=== PATIENT | male | born 1935 | race Caucasian/White ===

== ENCOUNTER 2018-09-16 12:20 | Emergency (ER) | payer MEDICARE, OTHER ==
[2018-09-16 13:09] VITALS: BP 151/74
== END 2018-09-16 14:45 | disposition left against medical advice (07) ==
LOC: ED 12:20
DX: Z53.21 Procedure and treatment not carried out due to patient leaving prior to being seen by health care provider (principal)
CPT/HCPCS: 99282

== ENCOUNTER 2018-12-21 14:26 | Inpatient (IN) | payer MEDICARE, OTHER ==
--- OUTSIDE RECORDS SUMMARY | 2018-12-21 14:34 | XMS REPORT | Continuity of Care Document ---
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 Onset: 03/29/2013 Hypothyroidism John Brewer M.D.,FACP Onset: 06/20/2013 Acute exacerbation of chronic Aric Murillo M.D. Onset: 08/16/2014 obstructive airways disease Dyssomnia Aric Murillo M.D. 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 Tobacco Use Start: Unknown Former Cigarette Smoker End: Unknown Cigarette Use Quit 30 Years Ago ETOH Use Has consumed alcohol in drank heavily, quit the past 30 yrs ago ETOH Use 07/12/2012 Occasionally consumes alcohol Recreational Drug Use Denies Drug Use Tobacco Use Start: Unknown Patient is a former Smoked for 60 yrs End: Unknown smoker Smoking Status Reviewed: 10/26/18 Patient is a former Smoked for 60 yrs smoker Exercise Type/Frequency Does not exercise Allergies, Adverse Reactions, Alerts Active Allergies Reaction Severity Comments Date Penicillin 07/12/2012 Inactive Allergies NKDA 02/27/2009 Medications Active Medications SIG Qnty Indications Ordering Date Provider Losartan Potassium 1 by mouth once a 30tabs E11.9 Aric 11/26/2017 25mg day Nirmal Murillo Tablets Janumet take 1 tablet 60tabs E11.9 Rama Saini MD 06/27/2015 50-500mg twice daily Tablets Oxygen Wearable, 1units J44.1 John Berry NP 01/17/2015 [facility] portable oxygen unit. 2lnc as need with out door activity Nebulizer use as needed for 1units J44.9 Rama Saini MD 04/11/2014 Compressor/Dualfilter symptoms of sob /7' Tubing/Aerosol Dx-j44.9 T/Mthpiece 10-26-2018 Kit Nebulizer use as needed for 1units J44.9 Rama Saini MD 04/11/2014 Kit/Tubing/Mouthpiece symptoms sob dx-j44.9 Kit 10-26-2018 Albuterol Sulfate use one ampule 270ml Wicho Corbett 04/11/2014 via nebulizer Nirmal Murillo (2.5mg/3ML) 0.083% every 6h as Nebulizer needed Proair HFA inhale 2 puffs by 8.5units Aric 03/27/2014 108(90Base) mouth every four Nirmal Murillo mcg/Act Aerosol hours as needed Needs Appt Simvastatin take 1 tablet by 30tabs Rama Saini MD 02/13/2014 20mg mouth once daily Tablets Levothyroxine Sodium 1 by mouth every 90tabs E03.9 Rama Saini MD 2013 day 50mcg Tablets Sertraline HCL take 1 and 1/2 135tabs Rama Saini MD 07/12/2012 50mg tablet by mouth Tablets once daily Advair Diskus inhale 1 dose by 60unmikayla J44.9 Rama Saini MD 01/02/2011 mouth twice a day 250-50mcg/Dose as directed Aerosol Spiriva Handihaler inhale the 30caps Rama Saini MD 06/28/2009 contents of one 18mcg Capsules capsule in the handihaler once daily Pantoprazole Sodium take 1 tablet by 90tabs Rama Saini MD mouth once daily 40mg Tablets DR Finasteride take 1 tablet by 90tabs Rama Saini MD 5mg Tablets mouth once daily History Medications Azithromycin 2 tab today and 6tabs [place] 02/24/2017 - 250mg then 1tab daily Nirmal Murillo 03/13/2017 Tablets Mucinex 1 tab twice a day 60tabs J44.1 [place] 01/28/2017 - 600mg by mouth as Nirmal Murillo 06/10/2018 Tablets ER 12HR needed Penlac to the toe nails 13.2ml B35.1 [place] 03/12/2016 - 8% Solution daily Nirmal Murillo 06/10/2018 Celecoxib once daily 30caps M79.622 Won Andre NP 03/12/2016 - 0 01/28/2017 Capsules Theophylline ER take 1 tablet by 30tabs [place] 07/11/2015 - mouth daily Nirmal Murillo 06/10/2018 400mg Tablets ER 24HR Onetouch Lancets please check 100units Fermín Madera NP 07/02/2015 - blood sugar 10/26/2018 Misc fasting, before bed, and after meals as needed Onetouch Verio test three times 100units E11.9 Fermín Madera NP 2015 - a day as needed 10/26/2018 Strips dx: E11.9 Onetouch Verio use as directed 1units E11.9 [place] 06/27/2015 - Nirmal Murillo 10/26/2018 w/Device Kit Onetouch Verio use as directed 1units M25.522 Aric 06/27/2015 - Nirmal Murillo 06/27/2015 W/Device Kit Medrol (Joel) as directed 1tabs M25.522 Aric 06/27/2015 - 4mg Nirmal Murillo 07/11/2015 Tablets Azithromycin 2 tabs by mouth 6tabs 465.8 John Berry NP 04/11/2014 - 250mg on day one 08/16/2014 Tablets followed by 1 tab daily for the last 4 days Azithromycin 2 every day for 1 6tabs 491.21 John Pham 01/25/2014 - 250mg day, then 1 every Nirmal Brewer,[facility] 01/30/2014 Tablets day Atorvastatin one tab by mouth 90tabs 250.00 John Pham 06/20/2013 - Calcium every night at Nirmal Brewer,[facility] 09/27/2013 20mg bedtime Tablets Theophylline ER take 2 tablets by 120tabs Aric 10/28/2012 - mouth twice a day Nirmal Murillo 01/30/2016 200mg Tablets ER 12HR Daliresp po qd 30tabs 496 John Pham 07/12/2012 - 500mcg Nirmal Brewer,[facility] 10/28/2012 Tablets Zithromax Z-Joel as per directions Leah Nguyen 01/05/2012 - Nirmal Charles 02/02/2012 250mg Tablets Percocet 1-2 po q4-6h prn 60tabs 12/26/2011 - 5-325mg pain Isaacs[place], 09/27/2013 Tablets Nirmal Proscar 1 po qd 30tabs John Pham 04/25/2010 - 5mg Tablets Nirmal Brewer,FACP 04/25/2010 Advair Diskus 1 puff po bid 1mon 496 John Pham 10/02/2009 - Nirmal Brewer,FACP 01/02/2011 250-50mcg/Dose Aerosol Flomax 1 po at hs 30caps 250.00 John Pham 02/27/2009 - 0.4mg Caps Nirmal Brewer,[facility] 07/12/2012 ER 24HR 600.00 Fexofenadine HCL 1 po qd 30tabs Unknown - 01/02/2011 180mg Tablets Actos 1 po qd 30tabs Israel Nguyen - 15mg Tablets Nirmal Charles 10/23/2010 Symbicort 2 puffs bid Danyel, - Nirmal Zuluaga 06/28/2009 160-4.5mcg/Act Aerosol Spiriva Handihaler 1 inhalation qam 30caps Unknown - 05/28/2009 18mcg Capsules Proair HFA Inhale 2 Puffs By 8.5units John Pham - Mouth Every Four [place], 03/27/2014 108(90Base) mcg/ac Hours as Needed Nirmal,EV Aerosol Sertraline HCL take 1 tablet by 30tabs John Pham - 50mg mouth once daily [place], 07/12/2012 Tablets Nirmal,KADIP Theophylline CR take 2 tablets by 120tabs 496 John Pham - 200mg mouth twice a day [place], 07/12/2012 Tablets ER 12HR Nirmal,FACP Simvastatin Take 1 Tablet By 30tabs 250.00 John Pham - 20mg Mouth Once Daily [place], 06/20/2013 Tablets Nirmal,FACP Ibuprofen as needed Unknown - 200mg 01/28/2017 Capsules Nabumetone take 1 tablet by 60tabs [place] - 500mg mouth twice a day [place], 01/28/2017 Funmi Kinney Immunizations CPT Code Status Date Vaccine Reaction Lot # [id number] Given 03/04/2018 Fluzone High Dose No immediate [id number] reaction..jh [id number] Given 03/12/2016 Influ Virus Vaccine, no immediate rection [id number] Quadrivalent, Split Virus, noted ... [place] [address] Given 01/17/2015 Influenza Virus Vaccine, [id number] Quadrivalent, Split, Preservative Free 69854 Given 01/17/2015 Pneumococcal Conjugate [id number] Vaccine 13 Valent For Intramuscular Use [id number] Given 2014 Fluvirin Im 3Yrs And Older 63485 Given 01/25/2014 Zoster (Zostavax) [id number] 70871 Given 01/25/2014 Flu Vaccine Split Virus [id number] Preservative Free For Indiv 3Yr Older 70122 Given 01/21/2013 Flu Vaccine Split Virus [id number] Preservative Free For Indiv 3Yr Older Q2038 Given 12/10/2011 Fluzone Vaccine [id number] Q2038 Given 01/02/2011 Fluzone Vaccine [id number] 92809 Given 10/23/2010 Tdap - [id number] Tetanus/Diptheria/Acellular Pertussis 49597 Given 04/25/2010 Pneumonia Vaccine [id number] 73228 Given 01/12/2010 Influenza Virus 3Yrs & Over Vital Signs Date Vital Result Comment 10/26/2018 10:25am Height 68 inches 5'8" Weight 219.00 lb Heart Rate 84 /min BP Systolic Sitting 153 mmHg BP Diastolic Sitting 70 mmHg Body Temperature 97.7 F O2 % BldC Oximetry 96 % BMI (Body Mass Index) 33.3 kg/m2 06/10/2018 10:01am Height 68 inches 5'8" Weight 213.00 lb Heart Rate 98 /min BP Systolic Sitting 105 mmHg BP Diastolic Sitting 59 mmHg O2 % BldC Oximetry 91 % BMI (Body Mass Index) 32.4 kg/m2 11/26/2017 1:50pm Height 68 inches 5'8" Weight 220.25 lb Heart Rate 83 /min BP Systolic 130 mmHg BP Diastolic 62 mmHg O2 % BldC Oximetry 93 % BMI (Body Mass Index) 33.5 kg/m2 03/13/2017 11:54am Weight 237.00 lb Heart Rate 72 /min BP Systolic Sitting 120 mmHg BP Diastolic Sitting 68 mmHg Body Temperature 97.9 F O2 % BldC Oximetry 93 % 01/28/2017 1:08pm Weight 237.00 lb Heart Rate 98 /min BP Systolic 140 mmHg BP Diastolic 80 mmHg O2 % BldC Oximetry 94 % 03/12/2016 9:23am Weight 236.00 lb with shoes Heart Rate 115 /min BP Systolic Sitting 132 mmHg BP Diastolic Sitting 40 mmHg Body Temperature 97.5 F O2 % BldC Oximetry 94 % 94 resting on Ra walked 146 ft - 91 on Ra 01/30/2016 12:49pm Height 68 inches 5'8" Weight 242.00 lb Heart Rate 89 /min BP Systolic 144 mmHg BP Diastolic 67 mmHg BMI (Body Mass Index) 36.8 kg/m2 08/31/2015 1:37pm Weight 235.00 lb Heart Rate 113 /min BP Systolic Sitting 124 mmHg BP Diastolic Sitting 62 mmHg Body Temperature 99.2 F O2 % BldC Oximetry 97 % 06/27/2015 10:53am Weight 235.00 lb Heart Rate 104 /min BP Systolic Sitting 118 mmHg BP Diastolic Sitting 68 mmHg Body Temperature 97.7 F Pain Level 7 R forearm O2 % BldC Oximetry 96 % 03/09/2015 11:01am Height 68 inches 5'8" Weight 250.00 lb Heart Rate 83 /min BP Systolic Sitting 134 mmHg BP Diastolic Sitting 76 mmHg Respiratory Rate 20 /min O2 % BldC Oximetry 93 % on Ra BMI (Body Mass Index) 38.0 kg/m2 Neck Circumference in inches 16.5 01/17/2015 2:07pm Height 68.5 inches 5'8.50" Weight 252.00 lb Heart Rate 96 /min BP Systolic Sitting 142 mmHg BP Diastolic Sitting 78 mmHg Body Temperature 97.8 F O2 % BldC Oximetry 97 % BMI (Body Mass Index) 37.8 kg/m2 08/16/2014 12:57pm Weight 250.00 lb Heart Rate 88 /min BP Systolic Sitting 142 mmHg BP Diastolic Sitting 90 mmHg O2 % BldC Oximetry 94 % 04/11/2014 11:26am Weight 252.50 lb Heart Rate 104 /min BP Systolic Sitting 146 mmHg BP Diastolic Sitting 63 mmHg Body Temperature 98.5 F O2 % BldC Oximetry 93 % 01/25/2014 11:39am Height 68.5 inches 5'8.50" Weight 250.00 lb Heart Rate 105 /min BP Systolic Sitting 124 mmHg BP Diastolic Sitting 60 mmHg Body Temperature 98.3 F O2 % BldC Oximetry 94 % BMI (Body Mass Index) 37.5 kg/m2 09/27/2013 11:47am Height 68.5 inches 5'8.50" Weight 249.50 lb Heart Rate 80 /min BP Systolic Sitting 142 mmHg BP Diastolic Sitting 66 mmHg BMI (Body Mass Index) 37.4 kg/m2 06/20/2013 1:36pm Height 68 inches 5'8" Weight 243.00 lb Heart Rate 104 /min BP Systolic Sitting 144 mmHg BP Diastolic Sitting 68 mmHg BMI (Body Mass Index) 36.9 kg/m2 11/16/2012 1:39pm Weight 237.50 lb Heart Rate 88 /min BP Systolic Sitting 144 mmHg BP Diastolic Sitting 86 mmHg 07/12/2012 2:34pm Height 68.25 inches 5'8.25" Weight 249.00 lb Heart Rate 110 /min BP Systolic Sitting 144 mmHg BP Diastolic Sitting 80 mmHg O2 % BldC Oximetry 92 % BMI (Body Mass Index) 37.6 kg/m2 01/05/2012 1:00pm Height 69 inches 5'9" Weight 239.00 lb Heart Rate 101 /min BP Systolic Sitting 140 mmHg BP Diastolic Sitting 72 mmHg Body Temperature 99.3 F O2 % BldC Oximetry 93 % BMI (Body Mass Index) 35.3 kg/m2 12/10/2011 3:20pm Height 69 inches 5'9" Weight 241.00 lb Heart Rate 70 /min BP Systolic Sitting 120 mmHg BP Diastolic Sitting 80 mmHg Respiratory Rate 18 /min Body Temperature 98.8 F lt ear BMI (Body Mass Index) 35.6 kg/m2 07/17/2011 3:14pm Height 70 inches 5'10" Weight 249.00 lb Heart Rate 101 /min BP Systolic 159 mmHg BP Diastolic 83 mmHg BMI (Body Mass Index) 35.7 kg/m2 04/25/2011 1:54pm Height 69 inches 5'9" Weight 244.00 lb Heart Rate 100 /min BP Systolic Sitting 148 mmHg BP Diastolic Sitting 82 mmHg BMI (Body Mass Index) 36.0 kg/m2 01/02/2011 1:48pm Height 69 inches 5'9" Weight 241.00 lb Heart Rate 76 /min BP Systolic Sitting 150 mmHg BP Diastolic Sitting 70 mmHg BMI (Body Mass Index) 35.6 kg/m2 10/23/2010 3:32pm Height 69 inches 5'9" Weight 240.00 lb Heart Rate 98 /min BP Systolic Sitting 128 mmHg BP Diastolic Sitting 70 mmHg BMI (Body Mass Index) 35.4 kg/m2 04/25/2010 1:01pm Weight 254.00 lb Heart Rate 83 /min BP Systolic Sitting 150 mmHg BP Diastolic Sitting 70 mmHg 10/23/2009 11:05am Weight 252.00 lb Heart Rate 88 /min BP Systolic Sitting 150 mmHg BP Diastolic Sitting 74 mmHg 10/02/2009 11:05am Weight 252.00 lb Heart Rate 84 /min BP Systolic Sitting 130 mmHg BP Diastolic Sitting 64 mmHg O2 % BldC Oximetry 94 % 06/28/2009 1:56pm Weight 258.50 lb Heart Rate 100 /min BP Systolic Sitting 159 mmHg BP Diastolic Sitting 90 mmHg Body Temperature 98.1 F O2 % BldC Oximetry 93 % 05/28/2009 3:44pm Weight 251.00 lb Heart Rate 84 /min BP Systolic Sitting 138 mmHg BP Diastolic Sitting 70 mmHg 04/13/2009 2:42pm Weight 251.00 lb Heart Rate 85 /min BP Systolic Sitting 113 mmHg BP Diastolic Sitting 65 mmHg Body Temperature 97.6 F 02/27/2009 1:48pm Weight 247.00 lb Heart Rate 84 /min BP Systolic Sitting 154 mmHg BP Diastolic Sitting 80 mmHg Results Test Date Facility Test Result H/L Range Note Laboratory test 10/26/2018 [facility] In House Hemoglobin A1c 5.8 5-7 finding Laboratory test 06/10/2018 [facility] House Hemoglobin A1c 5.8 5-7 finding Comp Metabolic 06/10/2018 [facility] Sodium 144 mmol/L Normal 135-[address] [place] [address] [phone] Potassium 4.2 mmol/L Normal 3.5-5.0 Chloride 106 mmol/L Normal 101-111 Co2 Carbon Dioxide 31 mmol/L Normal 22-32 Anion Gap 7 mmol/L Normal 2-11 Glucose 113 mg/dL High 70-100 Blood Urea Nitrogen 16 mg/dL Normal 6-24 Creatinine 0.92 mg/dL Normal 0.67-1.17 BUN/Creatinine Ratio 17.4 Normal 8-20 Calcium 9.2 mg/dL Normal 8.6-10.3 Total Protein 6.3 g/dL Low 6.4-8.9 Albumin 3.8 g/dL Normal 3.2-5.2 Globulin 2.5 g/dL Normal 2-4 Albumin/Globulin Ratio 1.5 Normal 1-3 Total Bilirubin 0.60 mg/dL Normal 0.2-1.0 Alkaline Phosphatase 67 U/L Normal 34-104 Alt 13 U/L Normal 7-52 Ast 12 U/L Low 13-39 Egfr Non- 79.2 >60 Egfr 95.8 >60 1 Lipid Profile 06/10/2018 [facility] Triglycerides 135 mg/dL 2 (Trig/Chol/HDL) [place], [place] [id number] [phone] Cholesterol 185 mg/dL 3 HDL Cholesterol 47.2 mg/dL 4 LDL Cholesterol 111 mg/dL 5 Laboratory test 06/10/2018 [facility] TSH (Thyroid 3.87 Normal 0.34-5.60 finding Stim Horm) mcIU/[place] [address] [phone] Laboratory test 11/26/2017 [facility] House Hemoglobin A1c 6.0 5-7 finding Urine 11/26/2017 [facility] Ur 30.5 Microalbumin [facility] [place] [place] [address] (mg/L) [phone] Urine Creatinine 138.70 mg/dL Urine Microalbumin/Creatinine 21.9 Normal <31 Laboratory 03/13/2017 [facility] TSH (Thyroid 4.87 Normal 0.34 -5.60 test finding [facility] Stim Horm) mcIU/[place] [address] [phone] Comp Metabolic 03/13/2017 [facility] Sodium 141 mmol/L Normal 133-145 Panel [place], [place] [id number] [phone] Potassium 3.9 mmol/L Normal 3.5-5.0 Chloride 106 mmol/L Normal 101-111 Co2 Carbon Dioxide 28 mmol/L Normal 22-32 Anion Gap 7 mmol/L Normal 2-11 Glucose 190 mg/dL High 70-100 Blood Urea Nitrogen 15 mg/dL Normal 6-24 Creatinine 0.99 mg/dL Normal 0.67-1.17 BUN/Creatinine Ratio 15.2 Normal 8-20 Calcium 9.2 mg/dL Normal 8.6-10.3 Total Protein 6.5 g/dL Normal 6.4-8.9 Albumin 3.9 g/dL Normal 3.2-5.2 Globulin 2.6 g/dL Normal 2-4 Albumin/Globulin Ratio 1.5 Normal 1-3 Total Bilirubin 0.50 mg/dL Normal 0.2-1.0 Alkaline Phosphatase 63 U/L Normal 34-104 Alt 19 U/L Normal 7-52 Ast 13 U/L Normal 13-39 Egfr Non- 72.9 >60 Egfr 93.8 >60 6 CBC Auto 03/13/2017 [facility] White Blood 11.9 10^3/uL High 3.5-10.[address] [place] [address] [phone] Red Blood Count 4.41 10^6/uL Normal 4.0-5.4 Hemoglobin 14.0 g/dL Normal 14.0-18.0 Hematocrit 42 % Normal 42-52 Mean Corpuscular Volume 96 fL High 80-94 Mean Corpuscular Hemoglobin 32 pg High 27-31 Mean Corpuscular HGB Conc 33 g/dL Normal 31-36 Red Cell Distribution Width 14 % Normal 10.5-15 Platelet Count 262 10^3/uL Normal 150-450 Mean Platelet Volume 9 um3 Normal 7.4-10.4 Abs Neutrophils 8.3 10^3/uL High 1.5-7.7 Abs Lymphocytes 2.6 10^3/uL Normal 1.0-4.8 Abs Monocytes 0.8 10^3/uL Normal 0-0.8 Abs Eosinophils 0.2 10^3/uL Normal 0-0.6 Abs Basophils 0.1 10^3/uL Normal 0-0.2 Abs Nucleated RBC 0.01 10^3/uL Granulocyte % 69.2 % Normal 38-83 Lymphocyte % 21.8 % Low 25-47 Monocyte % 6.8 % Normal 1-9 Eosinophil % 1.8 % Normal 0-6 Basophil % 0.4 % Normal 0-2 Nucleated Red Blood Cells % 0.1 Laboratory test 01/28/2017 [facility] House Hemoglobin A1c 5.9 5-7 finding Laboratory test 03/12/2016 [facility] In House Hemoglobin A1c 5.5 5-7 finding Laboratory test 08/31/2015 [facility] In House Hemoglobin A1c 6.8 5-7 finding Lipid Profile 08/17/2015 [facility] Triglycerides 218 mg/dL Normal 7 (Trig/Chol/HDL) [address] [place], [place] [id number] [phone] Cholesterol 173 mg/dL Normal 8 HDL Cholesterol 40.3 mg/dL Normal 9 LDL Cholesterol 89 mg/dL Normal 10 Laboratory 06/27/2015 [facility] TSH (Thyroid 3.56 Normal 0.34 -5.60 11 test finding [address] Stim Horm) ?IU/[place] [address] [phone] Hemoglobin A1c (Glyco HGB) 8.8 % High Less than 6.0 12 Laboratory test 06/27/2015 [facility] Glucose 209 mg/dL High 70-100 13 finding [place], [place] [id number] [phone] Lipid Profile 06/27/2015 [facility] Triglycerides 179 mg/dL Normal 14 (Trig/Chol/HDL) [address] [place], [place] [address] [phone] Cholesterol 167 mg/dL Normal 15 HDL Cholesterol 43.4 mg/dL Normal 16 LDL Cholesterol 88 mg/dL Normal 17 CBC Auto 05/12/2015 [facility] White Blood 9.0 10^3/uL Normal 3.5-10.[address] [place] [address] [phone] Red Blood Count 4.96 10^6/uL Normal 4.0-5.4 Hemoglobin 15.3 g/dL Normal 14.0-18.0 Hematocrit 47 % Normal 42-52 Mean Corpuscular Volume 94 fL Normal 80-94 Mean Corpuscular Hemoglobin 31 pg Normal 27-31 Mean Corpuscular HGB Conc 33 g/dL Normal 31-36 Red Cell Distribution Width 14 % Normal 10.5-15 Platelet Count 261 10^3/uL Normal 150-450 Mean Platelet Volume 8 um3 Normal 7.4-10.4 Abs Neutrophils 5.2 10^3/uL Normal 1.5-7.7 Abs Lymphocytes 2.8 10^3/uL Normal 1.0-4.8 Abs Monocytes 0.7 10^3/uL Normal 0-0.8 Abs Eosinophils 0.2 10^3/uL Normal 0-0.6 Abs Basophils 0.1 10^3/uL Normal 0-0.2 Abs Nucleated RBC 0 10^3/uL Normal Granulocyte % 58.1 % Normal 38-83 Lymphocyte % 31.1 % Normal 25-47 Monocyte % 7.6 % Normal 1-9 Eosinophil % 2.2 % Normal 0-6 Basophil % 1.0 % Normal 0-2 Nucleated Red Blood Cells % 0 Normal Comp Metabolic 05/12/2015 [facility] Sodium 140 mmol/L Normal 133-[address] [place] [address] [phone] Potassium 4.4 mmol/L Normal 3.5-5.0 Chloride 101 mmol/L Normal 101-111 Co2 Carbon Dioxide 34 mmol/L High 22-32 Anion Gap 5 mmol/L Normal 2-11 Glucose 214 mg/dL High 70-100 Blood Urea Nitrogen 16 mg/dL Normal 6-24 Creatinine 1.11 mg/dL Normal 0.67-1.17 BUN/Creatinine Ratio 14.4 Normal 8-20 Calcium 8.9 mg/dL Normal 8.6-10.3 Total Protein 7.0 g/dL Normal 6.4-8.9 Albumin 3.8 g/dL Normal 3.2-5.2 Globulin 3.2 g/dL Normal 2-4 Albumin/Globulin Ratio 1.2 Normal 1-3 Total Bilirubin 0.40 mg/dL Normal 0.2-1.0 Alkaline Phosphatase 61 U/L Normal 34-104 Alt 37 U/L Normal 7-52 Ast 28 U/L Normal 13-39 Egfr Non- 64.2 Normal >60 Egfr 82.6 Normal >60 18 Laboratory 05/12/2015 [facility] Troponin-I (TnI) 0.00 Normal <0.03 19 test finding [address] ng/[place] [address] [phone] Laboratory 03/08/2015 [facility] Theophylline 11.4 Normal 10- 20.0 test finding [address] g/[place] [address] [phone] Laboratory 01/17/2015 [facility] House Hemoglobin A1c 7.5 High 5-7 test finding Laboratory 10/19/2013 [facility] TSH (Thyroid 2.67 Normal 0.34 -5.6 test finding [address] Stimulating IU/mL 0 [place] [address] Horm) [phone] Free T4 1.24 ng/mL High 0.61-1.12 Theophylline 6.3 g/mL Low 10-20.0 Urine 06/21/2013 [facility] Ur Microalbumin 5.0 mg/dL Normal < 30 [address] (mg/L) [place] [address] [phone] Urine Creatinine 91.46 mg/dL Normal Urine Microalbumin/Creatinine 5.4 Normal Less Than 31 Laboratory test 06/13/2013 [facility] PSA Screening 2.578 0- 4.0 [address] ng/[place] [address] [phone] Laboratory test 06/13/2013 [facility] TSH (Thyroid 8.59 High 0.34-5.60 [address] Stimulating IU/[place] [address] Horm) [phone] Hemoglobin A1c 5.9 % Less than 6.0 23 Comp Metabolic Panel 06/13/2013 [facility] Sodium 142 mmol/L 133-[address] [place] [address] [phone] Potassium 4.4 mmol/L 3.7-5.6 Chloride 105 mmol/L 101-111 Co2 Carbon Dioxide 30 mmol/L 22-32 Anion Gap 7 mmol/L 2-11 Glucose 114 mg/dL High 70-100 Blood Urea Nitrogen 19 mg/dL 6-24 Creatinine 1.10 mg/dL 0.67-1.17 BUN/Creatinine Ratio 17.3 8-20 Calcium 9.0 mg/dL 8.6-10.3 Total Protein 6.5 g/dL 6.4-8.9 Albumin 4.1 g/dL 3.2-5.2 Globulin 2.4 g/dL 2-4 Albumin/Globulin Ratio 1.7 1-3 Total Bilirubin 0.40 mg/dL 0.2-1.0 Alkaline Phosphatase 66 U/L 34-104 Alt 17 U/L 7-52 Ast 13 U/L 13-39 Egfr Non- 65.3 >60 Egfr 83.9 >60 24 Lipid Profile 06/13/2013 [facility] Triglycerides 93 mg/dL 25 (Trig/Chol/HDL) [address] [place] [address] [phone] Cholesterol 194 mg/dL 26 HDL Cholesterol 50.2 mg/dL 27 LDL Cholesterol 125 mg/dL 28 Laboratory test 02/10/2012 [facility] PSA Diagnostic 2.87 NG/ML 0-4.0 [address] [place] [address] [phone] Lipid Profile 12/10/2011 [facility] Triglyceride 137 mg/dL 40 -200 (Trig/Chol/HDL) [address] [place] [address] [phone] Cholesterol 179 mg/dL Less Than 200 30 High Density Lipoprotein 55 mg/dL 40-60 31 Cholesterol/HDL Ratio 3.25 AVERAGE 1-4.97 Low Density Lipoprotein 97 mg/dL Less Than 100 32 Comp Metabolic Panel 12/10/2011 [facility] Sodium 143 mmol/L 135-[address] [place] [address] [phone] Potassium 4.5 mmol/L 3.5-5.0 Chloride 108 mmol/L 101-111 Co2 (Carbon Dioxide) 26.0 mmol/L 22-32 Anion Gap 9.0 mmol/L 2-11 33 Glucose 102 mg/dL High 70-100 BUN 17 mg/dL 6-24 Creatinine 1.0 mg/dL 0.50-1.40 One Over Creatinine 1.00 BUN/Creatinine Ratio 17.0 8-20 Calcium 8.9 mg/dL 8.1-9.9 Total Protein 6.3 GM/DL 6.2-8.1 Albumin 3.8 GM/DL 3.2-5.2 Globulin 2.5 GM/DL 2-4 Albumin/Globulin Ratio 1.5 1-3 Bilirubin Total 0.9 mg/dL 0.4-1.5 34 Alkaline Phosphatase 77 U/L 39-117 Alt (SGPT) 21 U/L 17-63 Ast (Sgot) 17 U/L 12-42 eGFR Non- 73.2 > 60 eGFR 94.2 > 60 35 Laboratory test 12/10/2011 [facility] Hemoglobin A1c 5.9 % Less [address] Than 6.0 [place] [address] [phone] Urine 12/10/2011 [facility] Microalbumin 5.0 mg/L Microalbumin [address] (MG/L) Random [place] [address] [phone] Urine Creatinine 174.9 mg/dL Mohan Alb/Creatinine Ratio 2.9 UG/MG Less Than 30 37 Laboratory test 12/10/2011 [facility] Vitamin B12 263 pg/mL 180-914 [place] [address] [phone] TSH 3.36 MIU/ML 0.34-5.60 Theophylline 0.2 g/mL Low 8-20 38 Laboratory test 04/25/2011 [facility] In House Hemoglobin A1c 5.8 5-7 finding Laboratory test 01/02/2011 [facility] In House Hemoglobin A1c 5.6 5-7 finding Laboratory test 10/23/2010 [facility] Theophylline 14.2 g/mL 8-20 39 [place] [address] [phone] Liver Function 10/23/2010 [facility] Total Protein 6.9 GM/DL 6.2-8.1 [place] [address] [phone] Albumin 3.9 GM/DL 3.2-5.2 Globulin 3.0 GM/DL 2-4 Albumin/Globulin Ratio 1.3 1-3 Bilirubin Total 0.9 mg/dL 0.4-1.5 40 Bilirubin Direct 0.1 mg/dL 0.1-0.5 Indirect Bilirubin 0.8 mg/dL 0.3-1.0 41 Alkaline Phosphatase 81 U/L 39-117 Alt (SGPT) 15 U/L Low 17-63 Ast (Sgot) 19 U/L 12-42 Laboratory test 10/23/2010 [facility] In House Hemoglobin A1c 5.4 5-7 finding Laboratory test 08/20/2010 [facility] PSA,Diagnostic 3.55 NG/ML 0-4 42 [place] [address] [phone] Urine Microalbumin 04/25/2010 [facility] Microalbumin (MG/L) 2.0 mg/[place] [address] [phone] Urine Creatinine 195.46 mg/dL Mohan Alb/Creatinine Ratio 1.0 UG/MG Less Than 30 43 Lipid Panel - 04/25/2010 [facility] CPK (Creatine 56 U/L 0- [address] Kinase) [place] [address] [phone] Comp Metabolic 04/25/2010 [facility] Sodium 143 135-[address] mmol/[place] [address] [phone] Potassium 4.4 mmol/L 3.5-5.0 Chloride 106 mmol/L 101-111 Co2 (Carbon Dioxide) 30.0 mmol/L 22-32 Anion Gap 7.0 mmol/L 2-11 44 Glucose 99 mg/dL 70-100 BUN 23 mg/dL 6-24 Creatinine 1.10 mg/dL 0.50-1.40 One Over Creatinine 0.90 BUN/Creatinine Ratio 20.9 High 8-20 Calcium 8.8 mg/dL 8.1-9.9 Total Protein 5.9 GM/DL Low 6.2-8.1 Albumin 3.7 GM/DL 3.2-5.2 Globulin 2.2 GM/DL 2-4 Albumin/Globulin Ratio 1.7 1-3 Bilirubin Total 1.3 mg/dL 0.4-1.5 45 Alkaline Phosphatase 59 U/L 39-117 Alt (SGPT) 14 U/L Low 17-63 Ast (Sgot) 14 U/L 12-42 eGFR Non- 69.9 > 60 eGFR 84.6 > 60 46 Lipid Profile 04/25/2010 [facility] Triglyceride 118 mg/dL 40 -200 (Trig/Chol/HDL) [address] [place] [address] [phone] Cholesterol 156 mg/dL Less Than 200 47 High Density Lipoprotein 48 mg/dL 40-60 48 Cholesterol/HDL Ratio 3.25 AVERAGE 1-4.97 Low Density Lipoprotein 84 mg/dL Less Than 100 49 CBC With 04/25/2010 [facility] White Blood 7.6 CUMM 4.8-10.8 Electronic Diff [address] [place] [address] [phone] Red Cell Count 4.46 CUMM Low 4.6-6.2 Hemoglobin 14.2 g/dL 14.0-18.0 Hematocrit 42 % 42-52 Mean Corpuscular Volume 94 um3 80-94 Mean Corpuscular Hemoglob 32 pg High 27-31 Mean Corpuscular HGB Cone 34 g/dL 32-36 Redcell Distribution WDTH 15 % 10.5-15 Platelet Count 234 CUMM 150-450 Mean Platelet Volume 8.7 um3 7.4-10.4 Gran % 68.8 % 38-83 Lymph % 20.9 % Low 25-47 Mononuclear % 7.9 % 1-9 Eosinophil % 1.9 % 0-6 Basophil % 0.5 % 0-2 Abs Lymphs 1.6 1.0-4.8 Abs Mononuclear 0.6 0-0.8 Absolute Neutrophil Count 5.2 1.5-7.7 Abs Eosinophils 0.1 0-0.6 Abs Basophils 0 0-0.2 Laboratory test 04/25/2010 [facility] House Hemoglobin A1c 5.5 5-7 finding Laboratory test 10/02/2009 [facility] In House Hemoglobin A1c 5.7 5-7 finding Laboratory test 08/06/2009 [facility] PSA,Diagnostic 3.09 NG/ML 0-4 50 finding [address] [place] [address] [phone] Surgical Pathology 05/03/2009 [facility] Surgical 51 [email or web address] [facility] Pathology ----- <[place] [address] NOTE> [phone] CBC With 04/10/2009 [facility] White Blood Count 7.2 CUMM 4.8 -10.8 Electronic Diff [address] [place] [address] [phone] Red Cell Count 4.70 CUMM 4.6-6.2 Hemoglobin 14.9 g/dL 14.0-18.0 Hematocrit 44 % 42-52 Mean Corpuscular Volume 94 um3 80-94 Mean Corpuscular Hemoglob 32 pg High 27-31 Mean Corpuscular HGB Cone 34 g/dL 32-36 Redcell Distribution WDTH 14 % 10.5-15 Platelet Count 231 CUMM 150-450 Mean Platelet Volume 7.9 um3 7.4-10.4 Gran % 64.4 % 38-83 Lymph % 24.5 % Low 25-47 Mononuclear % 7.4 % 1-9 Eosinophil % 3.1 % 0-6 Basophil % 0.6 % 0-2 Abs Lymphs 1.8 1.0-4.8 Abs Mononuclear 0.5 0-0.8 Absolute Neutrophil Count 4.7 1.5-7.7 Abs Eosinophils 0.2 0-0.6 Abs Basophils 0 0-0.2 Comp Metabolic Panel 04/10/2009 [facility] Sodium 141 mmol/L 135-145 [address] [place] [address] [phone] Potassium 4.0 mmol/L 3.5-5.0 Chloride 104 mmol/L 101-111 Co2 (Carbon Dioxide) 28.0 mmol/L 22-32 Anion Gap 9.0 mmol/L 2-11 52 Glucose 122 mg/dL High 70-100 53 BUN 16 mg/dL 6-24 Creatinine 1.10 mg/dL 0.50-1.40 One Over Creatinine 0.90 BUN/Creatinine Ratio 14.5 8-20 Calcium 8.9 mg/dL 8.1-9.9 54 Total Protein 5.9 GM/DL Low 6.2-8.1 Albumin 3.8 GM/DL 3.2-5.2 Globulin 2.1 GM/DL 2-4 Albumin/Globulin Ratio 1.8 1-3 Bilirubin Total 0.8 mg/dL 0.4-1.5 55 Alkaline Phosphatase 64 U/L 39-117 Alt (SGPT) 18 U/L 17-63 Ast (Sgot) 17 U/L 12-42 eGFR Non- 70.1 > 60 eGFR 84.9 > 60 56 Lipid Profile 04/10/2009 [facility] Triglyceride 104 mg/dL 40 -200 (Trig/Chol/HDL) [address] [place] [address] [phone] Cholesterol 149 mg/dL Less Than 200 57 High Density Lipoprotein 53 mg/dL 40-60 58 Cholesterol/HDL Ratio 2.81 AVERAGE 1-4.97 Low Density Lipoprotein 75 mg/dL Less Than 100 59 Urinalysis 04/10/2009 [facility] Ua Color YELLOW Yellow [address] [place] [address] [phone] Appearance-Urine CLEAR Clear Specific Thorndike-Ur 1.018 1.010-1.030 Esterase-Urine NEGATIVE Negative Nitrite NEGATIVE Negative Ixibcflrvkga-Dv-HSF NEGATIVE Negative Protein-Urine NEGATIVE Negative PH-Urine 5.5 5-9 Blood-Urine NEGATIVE Negative Ketones-Urine NEGATIVE Negative Bilirubin-Ur NEGATIVE Negative Glucose-Urine NEGATIVE Negative Urine Microalbumin 04/10/2009 [facility] Microalbumin 14.0 mg/L Random [address] (MG/L) [place] [address] [phone] Urine Creatinine 154.30 mg/dL Mohan Alb/Creatinine Ratio 9.0 UG/MG Less Than 30 60 Laboratory test 04/10/2009 [facility] Hemoglobin A1c 5.8 % Less Than [address] [place] [address] [phone] PSA Screening 4.56 NG/ML High 0-4 62 1 Because ethnic data is not always readily available, this report includes an eGFR for both -Americans and non- Americans. The National Kidney Disease Education Program (NKDEP) does not endorse the use of the MDRD equation for patients that are not between the ages of 18 and 70, are , have extremes of body size, muscle mass, or nutritional status, or are non- or non-. According to the National Kidney Foundation, irrespective of diagnosis, the stage of the disease is based on the level of kidney function: Stage Description GFR(mL/min/1.73 m(2)) 1 Kidney damage with normal or decreased GFR 90 2 Kidney damage with mild decrease in GFR 60-89 3 Moderate decrease in GFR 30-59 4 Severe decrease in GFR 15-29 5 Kidney failure <15 (or dialysis) 2 Desirable: <150 Borderline High: 150-199 High: 200-499 Very High: >500 3 Desirable: <200 Borderline High: 200-239 High: >239 4 Low: <40 Desirable: 40-60 High: >60 5 Desirable: <100 Near Optimal: 100-129 Borderline High: 130-159 High: 160-189 Very High: >189 6 Because ethnic data is not always readily available, this report includes an eGFR for both -Americans and non- Americans. The National Kidney Disease Education Program (NKDEP) does not endorse the use of the MDRD equation for patients that are not between the ages of 18 and 70, are , have extremes of body size, muscle mass, or nutritional status, or are non- or non-. According to the National Kidney Foundation, irrespective of diagnosis, the stage of the disease is based on the level of kidney function: Stage Description GFR(mL/min/1.73 m(2)) 1 Kidney damage with normal or decreased GFR 90 2 Kidney damage with mild decrease in GFR 60-89 3 Moderate decrease in GFR 30-59 4 Severe decrease in GFR 15-29 5 Kidney failure <15 (or dialysis) 7 Desirable <150 Borderline high 150-199 High 200-499 Very High >500 8 Desirable <200 Borderline high 200-239 High >239 9 Low <40 Desirable: 40-60 High: >60 10 Desirable: <100 mg/dL Near Optimal: 100-129 mg/dL Borderline High: 130-159 mg/dL High: 160-189 mg/dL Very High: >189 mg/dL 11 FASTING 12 HOUR 12 Therapeutic target for the treatment of diabetes Mellitus patients is <7% HBA1C, and in selective patients <6.0%.Please refer to [place] [employer] Diabetic care guidelines for further information. 13 FASTING 12 HOUR 14 Desirable <150 Borderline high 150-199 High 200-499 Very High >500 15 Desirable <200 Borderline high 200-239 High >239 16 Low <40 Desirable: 40-60 High: >60 17 Desirable: <100 mg/dL Near Optimal: 100-129 mg/dL Borderline High: 130-159 mg/dL High: 160-189 mg/dL Very High: >189 mg/dL 18 Because ethnic data is not always readily available, this report includes an eGFR for both -Americans and non- Americans. The National Kidney Disease Education Program (NKDEP) does not endorse the use of the MDRD equation for patients that are not between the ages of 18 and 70, are , have extremes of body size, muscle mass, or nutritional status, or are non- or non-. According to the National Kidney Foundation, irrespective of diagnosis, the stage of the disease is based on the level of kidney function: Stage Description GFR(mL/min/1.73 m(2)) 1 Kidney damage with normal or decreased GFR 90 2 Kidney damage with mild decrease in GFR 60-89 3 Moderate decrease in GFR 30-59 4 Severe decrease in GFR 15-29 5 Kidney failure <15 (or dialysis) 19 Reference Range and Interpretation: TnI (ng/mL) Interpretation Less Than 0.03 ng/mL Not supportive of diagnosis of VT 0.03 - 0.50 ng/mL Indeterminate: suggest serial studies if clinically indicated. Greater than 0.5 ng/mL Consistent with diagnosis of VT 20 Microalbuminuria in a random sample is defined as: Microalbumin/Creatinine ratio of 30-299 ug/mg. 21 Serum levels of PSA measured using the [employer] DXI Hybritech immunoassay should not be interpreted as absolute evidence of the presence or absence of disease. The PSA value should be used in conjunction with other pertinent clinical diagnostic procedures. The values obtained with different assay methods or kits cannot be used interchangeably. 22 FASTING 23 Therapeutic target for the treatment of diabetes Mellitus patients is <7% HBA1C, and in selective patients <6.0%.Please refer to [place] [employer] Diabetic care guidelines for further information. 24 Because ethnic data is not always readily available, this report includes an eGFR for both -Americans and non- Americans. The National Kidney Disease Education Program (NKDEP) does not endorse the use of the MDRD equation for patients that are not between the ages of 18 and 70, are , have extremes of body size, muscle mass, or nutritional status, or are non- or non-. According to the National Kidney Foundation, irrespective of diagnosis, the stage of the disease is based on the level of kidney function: Stage Description GFR(mL/min/1.73 m(2)) 1 Kidney damage with normal or decreased GFR 90 2 Kidney damage with mild decrease in GFR 60-89 3 Moderate decrease in GFR 30-59 4 Severe decrease in GFR 15-29 5 Kidney failure <15 (or dialysis) 25 Desirable <150 Borderline high 150-199 High 200-499 Very High >500 26 Desirable <200 Borderline high 200-239 High >239 27 Low <40 Desirable: 40-60 High: >60 28 Desirable <100 Near Optimal 100-129 Borderline high 130-159 High 160-189 Very High >189 29 Serum levels of PSA measured using the [employer] DXI Hybritech immunoassay should not be interpreted as absolute evidence of the presence or absence of disease. The PSA value should be used in conjunction with other pertinent clinical diagnostic procedures. The values obtained with different assay methods or kits cannot be used interchangeably. 30 CHOLESTEROL INTERPRETATION: Desirable: Less than 200 MG/DL Borderline-High Risk: 200-239 MG/DL High-Risk: 240 MG/DL and over 31 HDL INTERPRETATION: Undesirable: High Risk: Less than 40 MG/DL Desirable: Low Risk: Greater than 60 MG/DL 32 LDL INTERPRETATION: Low Risk Optimal Level: LDL Less than 100 MG/DL Near or Above Optimal: LDL 100-129 MG/DL Borderline High Risk: LDL 130-159 MG/DL High Risk: LDL 160-189 MG/DL Very High Risk: LDL Greater than 189 MG/DL 33 Anion gap measurement may be of limited value in the presence of any alkalosis, especially in a combined acid base disorder. . 34 A metabolite of Naproxen, O-desmethylnaproxen, has been shown to interfere with the Jendrassik-Peridot method for measuring total bilirubin. Samples from patients who have taken Naproxen have shown spurious elevation in total bilirubin levels. 35 Because ethnic data is not always readily available, this report includes an eGFR for both -Americans and non- Americans. The National Kidney Disease Education Program (NKDEP) does not endorse the use of the MDRD equation for patients that are not between the ages of 18 and 70, are , have extremes of body size, muscle mass, or nutritional status, or are non- or non-. According to the National Kidney Foundation, irrespective of diagnosis, the stage of the disease is based on the level of kidney function: Stage Description GFR(mL/min/1.73 m(2)) 1 Kidney damage with normal or decreased GFR 90 2 Kidney damage with mild decrease in GFR 60-89 3 Moderate decrease in GFR 30-59 4 Severe decrease in GFR 15-29 5 Kidney failure <15 (or dialysis) 36 THERAPEUTIC TARGET FOR THE TREATMENT OF DIABETES MELLITUS PATIENTS IS <7% HBA1C, AND IN SELECTIVE PATIENTS <6.0%. PLEASE REFER TO [place] [employer] DIABETIC CARE GUIDELINES FOR FURTHER INFORMATION. 37 MICROALBUMINURIA IN A RANDOM SAMPLE IS DEFINED : MICROALBUMIN/CREATININE RATIO OF 30-299 ug/mg. . 38 The detection limit for THEOPHYLLINE is 0.2 mcg/ml . Values less than 0.2 mcg/ml cannot be accurately measured. . 39 The detection limit for THEOPHYLLINE is 0.2 mcg/ml . Values less than 0.2 mcg/ml cannot be accurately measured. . 40 A metabolite of Naproxen, O-desmethylnaproxen, has been shown to interfere with the Jendrassik-Peridot method for measuring total bilirubin. Samples from patients who have taken Naproxen have shown spurious elevation in total bilirubin levels. 41 Please note updated reference range, effective 10/18/09 42 * SERUM LEVELS OF PSA MEASURED USING THE [employer] ACCESS HYBRITECH IMMUNOASSAY SHOULD NOT BE INTERPRETED ABSOLUTE EVIDENCE OF THE PRESENCE OR ABSENCE OF DISEASE. THE PSA VALUE SHOULD BE USED IN CONJUNCTION WITH OTHER PERTINENT CLINICAL DIAGNOSTIC PROCEDURES. 43 MICROALBUMINURIA IN A RANDOM SAMPLE IS DEFINED : MICROALBUMIN/CREATININE RATIO OF 30-299 ug/mg. . 44 Anion gap measurement may be of limited value in the presence of any alkalosis, especially in a combined acid base disorder. . 45 A metabolite of Naproxen, O-desmethylnaproxen, has been shown to interfere with the Jendrassik-Dnonie method for measuring total bilirubin. Samples from patients who have taken Naproxen have shown spurious elevation in total bilirubin levels. 46 Because ethnic data is not always readily available, this report includes an eGFR for both -Americans and non- Americans. The National Kidney Disease Education Program (NKDEP) does not endorse the use of the MDRD equation for patients that are not between the ages of 18 and 70, are , have extremes of body size, muscle mass, or nutritional status, or are non- or non-. According to the National Kidney Foundation, irrespective of diagnosis, the stage of the disease is based on the level of kidney function: Stage Description GFR(mL/min/1.73 m(2)) 1 Kidney damage with normal or decreased GFR 90 2 Kidney damage with mild decrease in GFR 60-89 3 Moderate decrease in GFR 30-59 4 Severe decrease in GFR 15-29 5 Kidney failure <15 (or dialysis) 47 CHOLESTEROL INTERPRETATION: Desirable: Less than 200 MG/DL Borderline-High Risk: 200-239 MG/DL High-Risk: 240 MG/DL and over 48 HDL INTERPRETATION: Undesirable: High Risk: Less than 40 MG/DL Desirable: Low Risk: Greater than 60 MG/DL 49 LDL INTERPRETATION: Low Risk Optimal Level: LDL Less than 100 MG/DL Near or Above Optimal: LDL 100-129 MG/DL Borderline High Risk: LDL 130-159 MG/DL High Risk: LDL 160-189 MG/DL Very High Risk: LDL Greater than 189 MG/DL 50 * SERUM LEVELS OF PSA MEASURED USING THE [employer]ra[employer]ensors ACCESS HYBRITECH IMMUNOASSAY SHOULD NOT BE INTERPRETED ABSOLUTE EVIDENCE OF THE PRESENCE OR ABSENCE OF DISEASE. THE PSA VALUE SHOULD BE USED IN CONJUNCTION WITH OTHER PERTINENT CLINICAL DIAGNOSTIC PROCEDURES. 51 ---- RUN DATE: 05/07/09 [facility] NMI LIVE PAGE 1 RUN TIME: 1506 Specimen Inquiry RUN USER: INTERFACE -- Name: CLAUDIA BAY Status: REG REF Re05/03/09 Age/Sex: 73/M Unit#: [id number] Location: [facility] : 37 -- Specimen: [id number] Spec Date: 05/03/[address]: Vladislav bird MD Spec Type: SURGICAL P Received: 05/04/09-1133 Copies to: Zan Perez SPECIMEN 1) LEFT LOBE PROSTATE BIOPSY APEX (APEX 2) 2) LEFT LOBE PROSTATE BIOPSY BASE (BASE 3) 3) RIGHT LOBE PROSTATE BIOPSY APEX (APEX 2) 4) RIGHT LOBE PROSTATE BIOPSY BASE (BASE 3) HISTORY PRE-OP DIAGNOSIS: Elevated PSA, prostate enlargement. POST-OP DIAGNOSIS: PSA 4.56 on 04/08. GROSS DESCRIPTION 1) The specimen is received in formalin labelled Claudia Dingy, Left Prostate Lobe [place], and consists of two cores each measuring 1.9 cm. Submitted entirely, one cassette labelled 1. 2) The specimen is received in formalin labelled Claudia Dingy, Left Prostate Lobe Base, and consists of three cores ranging is size from 1.0 cm. to 1.8 cm. Submitted entirely, one cassette labelled 2. 3) The specimen is received in formalin labelled Claudia Dingy, Right Prostate Lobe [place], and consists of two cores each measuring 1.8 cm. Submitted entirely, one cassette labelled 3. 4) The specimen is received in formalin labelled Claudia Dingy, Right Prostate Lobe Base, and consists of four cores ranging in size from 0.4 cm. to 1.8 cm. Submitted entirely, one cassette labelled 4. DIAGNOSIS 1) Prostate, left apex, core biopsies: A) Benign prostate tissue. B) No evidence of neoplasia identified. 2) Prostate, left base, core biopsies: A) Benign prostate tissue. B) No evidence of neoplasia identified. -- DEPARTMENT OF PATHOLOGY, [address] [place] [address] [facility] Permit #[id number] Nirmal Anaya M.D. Assistant Dir oh -- -- RUN DATE: 05/07/09 [facility] NMI LIVE PAGE 2 RUN TIME: 1506 Specimen Inquiry RUN USER: INTERFACE -- Name: CLAUDIA BAY Status: REG REF Re05/03/09 Age/Sex: 73/M Unit#: [id number] Location: [facility] : 37 -- -- CONTINUED -- DIAGNOSIS (Continued) 3) Prostate, right apex, core biopsies: A) Benign prostate tissue. B) No evidence of neoplasia identified. 4) Prostate, right base, core biopsies: A) Benign prostate tissue. B) No evidence of neoplasia identified. Signed Electronically by: SHAN STERLING MD 05/07/09 1506 -- -- DEPARTMENT OF PATHOLOGY, [address] [place] [address] [facility] Permit #[id number] Shan Sterling M.D. Director Lucas Anand M.D. Beating Machine Operator Dir rayor -- 52 Anion gap measurement may be of limited value in the presence of any alkalosis, especially in a combined acid base disorder. . 53 Note change in reference range as of 11/18/07. The change was based on recommendations from the [place] [employer]. 54 Please note change in reference range effective 07 . 55 A metabolite of Naproxen, O-desmethylnaproxen, has been shown to interfere with the Jendrassik-Donnie method for measuring total bilirubin. Samples from patients who have taken Naproxen have shown spurious elevation in total bilirubin levels. 56 Because ethnic data is not always readily available, this report includes an eGFR for both -Americans and non- Americans. The National Kidney Disease Education Program (NKDEP) does not endorse the use of the MDRD equation for patients that are not between the ages of 18 and 70, are , have extremes of body size, muscle mass, or nutritional status, or are non- or non-. According to the National Kidney Foundation, irrespective of diagnosis, the stage of the disease is based on the level of kidney function: Stage Description GFR(mL/min/1.73 m(2)) 1 Kidney damage with normal or decreased GFR 90 2 Kidney damage with mild decrease in GFR 60-89 3 Moderate decrease in GFR 30-59 4 Severe decrease in GFR 15-29 5 Kidney failure <15 (or dialysis) 57 CHOLESTEROL INTERPRETATION: Desirable: Less than 200 MG/DL Borderline-High Risk: 200-239 MG/DL High-Risk: 240 MG/DL and over 58 HDL INTERPRETATION: Undesirable: High Risk: Less than 40 MG/DL Desirable: Low Risk: Greater than 60 MG/DL 59 LDL INTERPRETATION: Low Risk Optimal Level: LDL Less than 100 MG/DL Near or Above Optimal: LDL 100-129 MG/DL Borderline High Risk: LDL 130-159 MG/DL High Risk: LDL 160-189 MG/DL Very High Risk: LDL Greater than 189 MG/DL 60 MICROALBUMINURIA IN A RANDOM SAMPLE IS DEFINED : MICROALBUMIN/CREATININE RATIO OF 30-299 ug/mg. . 61 THERAPEUTIC TARGET FOR THE TREATMENT OF DIABETES MELLITUS PATIENTS IS <7% HBA1C, AND IN SELECTIVE PATIENTS <6.0%. PLEASE REFER TO [place] [employer] DIABETIC CARE GUIDELINES FOR FURTHER INFORMATION. 62 * SERUM LEVELS OF PSA MEASURED USING THE [employer]ra[employer] ACCESS HYBRITECH IMMUNOASSAY SHOULD NOT BE INTERPRETED ABSOLUTE EVIDENCE OF THE PRESENCE OR ABSENCE OF DISEASE. THE PSA VALUE SHOULD BE USED IN CONJUNCTION WITH OTHER PERTINENT CLINICAL DIAGNOSTIC PROCEDURES. Procedures Date Code Description Status 01/25/2014 51084 EKG Tracing & Interpretation Completed 01/02/2012 40608 Neuroplasty &/Or Transposition; Ulnar Nerve AT Elbow Completed 01/02/2012 94592 Neuroplasty &/Or Transposition; Ulnar Nerve AT Elbow Completed 08/22/2011 65065 Rad Exam; Wrist Limited, 2 Views Completed 08/22/2011 31966 Rad Exam; Elbow, Limited Completed 08/01/2011 00213 Rad Exam; Wrist Limited, 2 Views Completed 08/01/2011 85604 Rad Exam; Elbow, Limited Completed 08/01/2011 35127 Long Arm Splint Application Completed 07/21/2011 50100 Open TX Of Distal Radial Intra-Articular FX Or Epiphyseal Completed 07/21/2011 30097 Open TX Of Distal Radial Intra-Articular FX Or Epiphyseal Completed 07/21/2011 63124 FX Ulna Proximal (Olecranon) Open TX W/Wo Fixation Completed 07/21/2011 57468 FX Ulna Proximal (Olecranon) Open TX W/Wo Fixation Completed 06/28/2009 76950 EKG Tracing & Interpretation Completed Encounters Type Date Location Provider Dx Diagnosis Office Visit 06/10/2018 [facility] Rama Saini MD E11.9 Type 2 diabetes 10:00a Internal mellitus without Medicine-Arrow[facility] complications od K21.9 Gastro-esophageal reflux disease without esophagitis E03.9 Hypothyroidism, unspecified E78.2 Mixed hyperlipidemia I10 Essential (primary) hypertension F33.9 Major depressive disorder, recurrent, unspecified N40.0 Benign prostatic hyperplasia without lower urinry tract symp J44.9 Chronic obstructive pulmonary disease, unspecified Office Visit 11/26/2017 1:40p [facility] Sallie Corbett E11.9 Type 2 diabetes Irwin Murillo M.D. mellitus without [address] complications E03.9 Hypothyroidism, unspecified E78.2 Mixed hyperlipidemia J44.1 Chronic obstructive pulmonary disease w (acute) exacerbation Office Visit 03/13/2017 11:50a [facility] J06.9 Acute upper Medicine - MAlfonzo respiratory [address] infection, unspecified R53.83 Other fatigue Office Visit 01/28/2017 1:00p [facility] E11.9 Type 2 diabetes Irwin Murillo M.D. mellitus without Ccmob complications E78.2 Mixed hyperlipidemia E03.9 Hypothyroidism, unspecified I10 Essential (primary) hypertension J44.1 Chronic obstructive pulmonary disease w (acute) exacerbation Office Visit 03/12/2016 9:20a [facility] Internal Aric Murillo, B35.1 Tinea unguium Medicine - Meredith Kinney E11.9 Type 2 diabetes mellitus without complications J44.1 Chronic obstructive pulmonary disease w (acute) exacerbation E78.2 Mixed hyperlipidemia E03.9 Hypothyroidism, unspecified M79.622 Pain in left upper arm Z23 Encounter for immunization Office Visit 08/31/2015 1:40p [facility] Sallie Corbett E11.9 Type 2 diabetes Irwin Murillo M.D. mellitus without Ccmob complications E78.2 Mixed hyperlipidemia J44.1 Chronic obstructive pulmonary disease w (acute) exacerbation Office Visit 06/27/2015 11:00a [facility] Internal Aric Murillo, J44.9 Chronic Medicine - [place] obstructive Ccmob pulmonary disease, unspecified E11.9 Type 2 diabetes mellitus without complications M25.522 Pain in left elbow E66.01 Morbid (severe) obesity due to excess calories E03.9 Hypothyroidism, unspecified E78.2 Mixed hyperlipidemia Office Visit 03/09/2015 11:00a Pulmonology And [place] G47.9 Sleep disorder, [facility] unspecified [facility] J44.9 Chronic obstructive pulmonary disease, unspecified E66.01 Morbid (severe) obesity due to excess calories Office Visit 08/16/2014 1:00p [facility] Sallie Corbett 491.21 Bronchitis Irwin Murillo M.D. Obstructive Ccmob Chronic W/Acute Exacerbation 780.59 Sleep Disturbances Other Office Visit 04/11/2014 11:30a [facility] Internal John Berry, ALVA 496 COPD Airway Medicine - Ccmob Obstruction Chronic Not Class Elsewhere 465.8 Upper Respiratory Infections Acute Other Multiple Sites 491.21 Bronchitis Obstructive Chronic W/Acute Exacerbation 465.9 URI Upper Respiratory Infections Acute Unspec Sites Office Visit 01/25/2014 11:50a [facility] Internal John Pham 491.21 Bronchitis Irwin Brewer M.D.,FACP Obstructive Ccmob Chronic W/Acute Exacerbation 785.0 Tachycardia Unspec V04.89 Need For Prophylactic Vaccination & Inoculation Other Virus v04.81 Need For Prophylactic Vaccination & Inoculation/Influenza v04.89 Need For Prophylactic Vaccination & Inoculation Other Virus Office Visit 09/27/2013 [facility] Internal John D. 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 Office Visit 07/12/2012 2:40p [facility] Internal John Pham 496 COPD [facility], Obstruction Nirm[place],FAC Chronic Not Class Elsewhere 311 Depressive Disorder Not Elsewhere Spec Office Visit 01/05/2012 1:00p [facility] Internal Israel Nguyen 466.0 Bronchitis Acute Medicine - Meredith Charles M.D. Office Visit 12/10/2011 2:40p [facility] Internal John Pham V70.0 Examination [facility] General Medical [place]irm[place],[facility] Routine AT Health Care Facility 250.00 Diabetes Mellitus W/O Compl Type II Or Unspec Controlled 496 COPD Airway Obstruction Chronic Not Class Elsewhere 272.2 Hyperlipidemia Mixed 780.93 Memory Loss V04.81 Need For Prophylactic Vaccination & Inoculation/Influenza Office Visit 10/29/2011 1:30p Orthopedic 354.2 Lesion [facility] [place] Angulo Nerve C.M.ARichard 813.42 FX Radius (Alone) Distal End Other Closed 813.02 FX Ulna Coronoid Process Closed Office Visit 07/17/2011 2:45p Orthopedic Wyatt Lyman 813.04 FX Ulna Services Of Dmitriy Kinney Proximal End (Alone) Closed Other & Unspec 813.42 FX Radius (Alone) Distal End Other Closed Office Visit 04/25/2011 2:15p [facility] Internal Nu Joe, 250.00 Diabetes Mellitus Medicine - N.P. W/O Compl Type II Ccmob Or Unspec Controlled 784.7 Epistaxis 496 COPD Airway Obstruction Chronic Not Class Elsewhere Office 01/02/2011 DO Not Use Nu V04.81 Need For Prophylactic Visit 1:45p Rn Maternal Child AT [facility] N. Vaccination & [facility] Inoculation/Influenza 250.00 Diabetes Mellitus W/O Compl Type II Or Unspec Controlled 496 COPD Airway Obstruction Chronic Not Class Elsewhere Office Visit 11/11/2010 2:00p DO Not Use Rn Maternal Child Nurse Visit 380.4 Impacted Cerumen AT [facility] [place] Office Visit 10/23/2010 3:00p DO Not Use Rn Maternal Child John Pham V70.0 Examination AT [facility] Daniella [facility] Arc[facility]na Kinney,FACP Routine AT Health Care Facility 250.00 Diabetes Mellitus W/O Compl Type II Or Unspec Controlled 496 COPD Airway Obstruction Chronic Not Class Elsewhere V06.1 [place] Combined (DTaP) Office Visit 04/25/2010 1:00p DO Not Use Rn Maternal Child John Pham 250.00 Diabetes Mellitus AT Swapna Brewer M.D.,FACGemini W/O Compl Type II Or Unspec Controlled 380.22 Otitis Externa Other Acute 496 COPD Airway Obstruction Chronic Not Class Elsewhere 272.4 Hyperlipidemia Other Unspec V03.82 Streptococcus Pneumoniae Vaccination Spec Other Office Visit 10/23/2009 DO Not Use [facility] V72.81 Examination 11:00a AT Swapna Brewer M.D.,[facility] Preoperative Cardiovascular 366.9 Cataract Unspec 250.00 Diabetes Mellitus W/O Compl Type II Or Unspec Controlled 496 COPD Airway Obstruction Chronic Not Class Elsewhere Office Visit 10/02/2009 11:00a DO Not Use [facility] 496 COPD Airway AT Swapna Brewer M.D.,FACP Obstruction Chronic Not Class Elsewhere 250.00 Diabetes Mellitus W/O Compl Type II Or Unspec Controlled 366.9 Cataract Unspec 327.27 Central Sleep Apnea In Conditions Classified Elsewhere Office Visit 06/28/2009 2:00p DO Not Use Rn Maternal Child Danyel, 496 COPD Airway AT Swapna Zuluaga M.D. 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 Continue the same [id number] Gastro-esophageal reflux disease without esophagitisComments: Continue to use Protonix as needed. You can stop when reflux is better
--- NOTE | 2018-12-21 14:41 | ED ---
Neurological HPI - HPI Summary HPI Summary: Pt is an 82 y/o M presenting to the ED brought in by EMS for shaking. Per EMS, the pt was laying on his bed on arrival. The pts family states he was twitching /shaking on his L side, sometimes his R side. He currently denies all sx, including N/V, CP, or MUNSON. He is slightly SOB, and notes baseline blurred vision and umbilical hernia. - History of Current Complaint Chief Complaint: EDWeakness Stated Complaint: GENERAL ILLNESS PER EMS Time Seen by Provider: 12/21/18 14:35 Hx Obtained From: Patient Onset/Duration: Sudden Onset, Started hours ago, Resolved Timing: Sudden Onset Onset Severity: Moderate Current Severity: Mild Pain Intensity: 0 Pain Scale Used: 0-10 Numeric Character: Other: - Left-sided tremor Aggravating: Nothing Alleviating: Nothing Associated Signs and Symptoms: Positive: Shortness of Breath. Negative: Headache, Nausea/Vomiting, Chest Pain - Allergy/Home Medications Allergies/Adverse Reactions: Allergies Allergy/AdvReac Type Severity Reaction Status Date / Time Penicillins Allergy Swelling Verified 12/21/18 20:00 Home Medications: Home Medications Albuterol inh POWDER (NF) [Proair Respiclick] 2 puff INH Q4HR PRN 12/21/18 [ History Confirmed 12/21/18] Finasteride TAB* [Proscar TAB*] 5 mg PO DAILY 12/21/18 [History Confirmed ] Levothyroxine TAB* [Synthroid TAB*] 50 mcg PO DAILY 12/21/18 [History Confirmed 12/21/18] Loperamide CAP* [Imodium CAP*] 2 mg PO Q4H PRN 12/21/18 [History Confirmed 12/21] Pantoprazole TAB * [Protonix TAB*] 40 mg PO DAILY 12/21/18 [History Confirmed ] Sertraline* [Zoloft*] 75 mg PO DAILY 12/21/18 [History Confirmed 12/21/18] Simvastatin TAB(NF) [Zocor(NF)] 20 mg PO DAILY 12/21/18 [History Confirmed 12/21] Sitagliptin/Metform 50/500(NF) [Janumet 50/500 (NF)] 1 tab PO BID 12/21/18 [ History Confirmed 12/21/18] Spiriva HANDIHALER DEVICE (NF) [Tiotropium Inhaler DEVICE (NF)] 1 inh PO DAILY 12/21/18 [History Confirmed 12/21/18] guaiFENesin ER TAB [Mucinex*] 600 mg PO BID 12/21/18 [History Confirmed 12/21/18 ] PMH/Surg Hx/FS Hx/Imm Hx Previously Healthy: Yes Endocrine/Hematology History: Denies: Hx Diabetes, Hx Thyroid Disease Cardiovascular History: Denies: Hx Hypercholesterolemia, Hx Hypertension Respiratory History: Reports: Hx Asthma, Hx Chronic Obstructive Pulmonary Disease (COPD) GI History: Denies: Hx Ulcer - Surgical History Surgery Procedure, Year, and Place: bilat shoulders (rotator cuff on right; fracture left) Infectious Disease History: No Infectious Disease History: Reports: Hx Shingles Denies: Hx Hepatitis, Hx Human Immunodeficiency Virus (HIV), Traveled Outside the [place] in Last 30 Days - Family History Known Family History: Negative: Diabetes - Social History Alcohol Use: Occasionally Hx Substance Use: No - None Substance Use Type: Reports: None Hx Tobacco Use: Yes Smoking Status (MU): Former Smoker Have You Smoked in the Last Year: No Review of Systems Negative: Chest Pain Positive: Shortness Of Breath Negative: Vomiting, Nausea Neurological: Other - Left-sided tremor, resolved Negative: Headache All Other Systems Reviewed And Are Negative: Yes Physical Exam - Summary Physical Exam Summary: VITAL SIGNS: Reviewed. GENERAL: Patient is a well-developed and nourished MALE who is lying comfortable in the stretcher.Patient is not in any acute respiratory distress. HEAD AND FACE: No signs of trauma. No ecchymosis, hematomas or skull depressions. No sinus tenderness. EYES: PERRLA, EOMI x 2, No injected conjunctiva, no nystagmus. No photophobia. EARS: Hearing grossly intact. Ear canals and tympanic membranes are within normal limits. MOUTH: Oropharynx within normal limits. NECK: Supple, trachea is midline, no adenopathy, no JVD, no carotid bruit, no c- spine tenderness, neck with full ROM. No meningeal signs, no Kernig's or brudzinskis signs. CHEST: Symmetric, no tenderness at palpation. LUNGS: Clear to auscultation bilaterally. No wheezing or crackles. CVS: Regular rate and rhythm, S1 and S2 present, no murmurs or gallops appreciated. ABDOMEN: Soft, non-tender. No signs of distention. No rebound, no guarding, and no masses palpated. Bowel sounds are normal. EXTREMITIES: FROM in all major joints, no edema, no cyanosis or clubbing. NEURO: Alert and oriented x 3. No acute neurological deficits. Speech is normal and follows commands. SKIN: Dry and warm. GCS: 15 Triage Information Reviewed: Yes Vital Signs On Initial Exam: Initial Vitals Temp Pulse Resp BP Pulse Ox 98.1 F 105 14 146/76 96 12/21/18 14:34 12/21/18 14:34 12/21/18 14:34 12/21/18 14:34 12/21/18 14:34 Vital Signs Reviewed: Yes - [place] Coma Scale Best Eye Response: 4 - Spontaneous Best Motor Response: 6 - Obeys Commands Best Verbal Response: 5 - Oriented Coma Scale Total: 15 Diagnostics - Vital Signs Vital Signs Temp Pulse Resp BP Pulse Ox 12/21/18 14:34 98.1 F 105 14 146/76 96 - Laboratory Result Diagrams: 12/22/18 05:42 12/22/18 05:48 Lab Statement: Any lab studies that have been ordered have been reviewed, and results considered in the medical decision making process. - CT Brain CT CT Interpretation Completed By: Radiologist Summary of CT Findings: Brain CT IMPRESSION: NO ACUTE INTRACRANIAL PATHOLOGY. DIFFUSE INVOLUTIONAL CHANGE WITH CHRONIC SMALL VESSEL ISCHEMIC CHANGES. EVIDENCE OF REMOTE RIGHT PARIETAL INFARCT. Reviewed by ED physician. - EKG 14:57 Cardiac Rate: NL - 86 BPM EKG Rhythm: Sinus Rhythm ST Segment: Normal Ectopy: None Summary of EKG Findings: EKG at 14:57 shows 86 bpm, with sinus rhythm, RBBB, and no ST elevations. Reviewed and interpreted by ED physician. Re-Evaluation - Re-Evaluation 1st re-eval Re-Evaluation Time: 16:15 Change: Unchanged Comment: At 16:15, I re-evaluated the pt who states he has had SOB for many days. Pt had diarrhea last week but it is getting better. Rectal exam was performed that showed melena. Course/Dx - Course Assessment/Plan: This patient is an 82-year-old male who presents to the emergency department with a chief complaint of having shortness of breath and involuntary movements today. The patient also reports weakness. Patient is not a very good historian. Blood test results without any significant abnormality except for hemoglobin of 7.5, hematocrit 22, MVC is 98. Glucose is 122, lactic acid is 3.3, calcium 8.1, troponin is 0.15, total protein is 5.5. Head CT impression: No acute intracranial pathology. Diffuse involutional change with chronic small vessel ischemic changes. Evidence of remote right parietal infarct. Because of the low H&H I decided to perform a rectal exam in which I found that the patient has melena. I discussed the case with Dr. Murillo from GI and he recommends for the patient to be given Protonix drip and admitted to the hospitalist. I discussed my physical exam and findings with Dr. Tatum from the hospitalist services, who accepted the patient for admission. The patient is hemodynamically stable alert and oriented 3. - Diagnoses Provider Diagnoses: GI bleed, Elevated troponin - Physician Notifications Discussed Care Of Patient With: Kamryn Tatum Time Discussed With Above Provider: 17:44 Instructed by Provider To: Admit As Inpatient Discharge ED - Sign-Out/Discharge Documenting (check all that apply): Patient Departure - Discharge Plan Condition: Stable Disposition: ADMITTED TO [facility] - Billing Disposition and Condition Condition: STABLE Disposition: Admitted to [facility] - Attestation Statements Document Initiated by Darlineibe: Yes Documenting Scribe: Sophia Goldberg Provider For Whom Phillip is Documenting (Include Credential): Israel Espinal MD. Scribe Attestation: I, Sophia Goldberg, scribed for Israel Espinal MD. on 12/22/18 at 0739. Scribe Documentation Reviewed: Yes Provider Attestation: The documentation as recorded by the darlineibe, Sophia Goldberg accurately reflects the service I personally performed and the decisions made by me, Israel Espinal MD. Status of Scribe Document: Viewed Consult Consult: 9122 - I spoke with Dr. Tatum about the pt's present condition. She will be accepting the pt to [facility].
[2018-12-21 15:27] LABS: ABS Basophils 0.1 10^3/ul (0-0.2); ABS Eosinophils 0.1 10^3/ul (0-0.6); ABS Lymphocytes 1.3 10^3/ul (1.0-4.8); ABS Monocytes 0.8 10^3/ul (0-0.8); ABS Neutrophils 5.9 10^3/ul (1.5-7.7); Eosinophil % 1.8 %; Hematocrit 22 % (42-52); Hemoglobin 7.5 g/dL (14.0-18.0); Lymphocyte % 15.5 %; Mean Corpuscular HGB Conc 33 g/dL (31-36); Mean Corpuscular Hemoglobin 33 pg (27-31); Mean Corpuscular Volume 98 fL (80-94); Mean Platelet Volume 7.3 fL (7.4-10.4); Nucleated Red Blood Cells % 0.2; Platelet Count 347 10^3/uL (150-450); Red Blood Count 2.29 10^6 /uL (4.18-5.48); Red Cell Distribution Width 15 % (10-15); White Blood Count 8.2 10^3/uL (3.5-10.8)
[2018-12-21 15:44] LABS: INR 0.94 (0.82-1.09)
[2018-12-21 15:59] LABS: Troponin I 0.15 ng/mL (<0.04)
[2018-12-21 16:00] LABS: ALT 8 U/L (7-52); AST 11 U/L (13-39); Albumin 3.3 g/dL (3.2-5.2); Albumin/Globulin Ratio 1.5 (1-3); Alkaline Phosphatase 53 U/L (34-104); Anion Gap 5 mmol/L (2-11); BUN/Creatinine Ratio 22.9 (8-20); Blood Urea Nitrogen 16 mg/dL (6-24); CO2 Carbon Dioxide 30 mmol/L (22-32); Calcium 8.1 mg/dL (8.6-10.3); Chloride 109 mmol/L (101-111); Cholesterol 125 mg/dL; EGFR African American 131.3 (>60); EGFR Non-African American 108.5 (>60); Globulin 2.2 g/dL (2-4); Glucose 122 mg/dL (70-100); HDL Cholesterol 41.1 mg/dL; LDL Cholesterol 61 mg/dL; Potassium 3.8 mmol/L (3.5-5.0); Sodium 144 mmol/L (135-145); Total Protein 5.5 g/dL (6.4-8.9); Triglycerides 115 mg/dL
[2018-12-21 16:13] LABS: Alcohol < 10 mg/dL (<10)
[2018-12-21] MEDS ORDERED: Pantoprazole* 80 mg IN NS 80 MG/250 ML BAG IV ONE (17:29)
[2018-12-21] MEDS ORDERED: Acetaminophen TAB* 325 MG PO PRN (18:43)
[2018-12-21] MEDS ORDERED: Albuterol HFA INHALER* 8 gm MDI INH PRN (18:59)
[2018-12-21 21:24] LABS: Troponin I 0.15 ng/mL (<0.04)
[2018-12-21] MEDS ORDERED: Dextrose 50% VIAL 50 ml IV PUSH PRN (22:21)
[2018-12-21] MEDS: NS 0.9% 1000 ML** 1,000 ML IV SCH (23:55)
[2018-12-22 00:16] LABS: Troponin I 0.16 ng/mL (<0.04)
--- NOTE | 2018-12-22 00:26 | HP ---
CC: Dr. Saini * HISTORY AND PHYSICAL: DATE OF ADMISSION: 12/21/18 PROVIDER: Amie Castanon NP PRIMARY CARE PROVIDER: Dr. Saini ATTENDING PHYSICIAN WHILE IN THE HOSPITAL: Dr. Sneha Torres * (dictated by Amie Castanon NP) CHIEF COMPLAINT: Shaking, weakness. HISTORY OF PRESENT ILLNESS: Mr. Bridges is an 82-year-old male, who presented to the emergency room with complaints of shaking and twitching on his left side. The patient had no other complaints, no fever, no unintended weight loss. He does report that he had some chest pain approximately 2 days ago. Denies any edema. Denies any cough, hemoptysis, or shortness of breath. He denies any vomiting. He does report that he has had diarrhea for approximately 2 weeks. No abdominal pain. No hematuria or dysuria. He does report black stools x1 week. Denies any focal weakness. He does report twitching on both sides right worse than left. Denies any visual complaints, dysphagia, arthralgias, myalgias , rashes, lesions, open sores, psychosis, or anxiety. Due to his shaking and twitching, weakness, the patient was brought to the emergency room for further evaluation. While in the emergency room, the patient had routine lab work drawn. He was found to be anemic with an H and H 7.5 and 22. He was found to have a troponin of 0.15 and an elevated lactic acid of 3.3. The patient was found to have a heme-positive occult stool and was placed on Protonix drip in the emergency room. Due to his findings of anemia and positive troponin, Hospital Medicine was asked to see and evaluate for admission. PAST MEDICAL HISTORY: Significant for COPD, hyperlipidemia, type 2 diabetes, GERD, hypothyroid, depression. PAST SURGICAL HISTORY: Left wrist ORIF, left elbow, right shoulder. HOME MEDICATIONS: Include: 1. Proscar 5 mg p.o. daily. 2. Levothyroxine 50 mcg p.o. daily. 3. Zoloft 75 mg p.o. daily. 4. Simvastatin 20 mg p.o. daily. 5. Pantoprazole 40 mg p.o. daily. 6. Janumet 1 tab p.o. b.i.d. 7. Albuterol 2 puffs q.4 hours. 8. Imodium 2 mg as needed. 9. Spiriva 1 inhaled p.o. daily. ALLERGIES: To PENICILLIN. FAMILY HISTORY: Mother with a history of stroke, at the age of 94. No reported history of diabetes. Mother with colon cancer. SOCIAL HISTORY: The patient reports that he quit smoking 15 to 20 years ago, prior to that he smoked for 40 years 2 to 3 pack a day. Does report occasional alcohol use. No illicit drug use. He lives with his son and [id number]. Surrogate decision maker in the event he is unable to make his own decisions is his son. He is a full code. REVIEW OF SYSTEMS: An 11-point review of systems was completed. All pertinent positives were mentioned in the HPI, otherwise were negative. PHYSICAL EXAMINATION GENERAL: At this time, Mr. Bridges is an 82-year-old male, he is alert and oriented. His color is pale. He is resting on the stretcher in the emergency room. He is in no acute distress. VITAL SIGNS: Blood pressure 134/73, heart rate 84, respirations are 18, O2 saturation 96%, temperature was 98.1. HEENT: Head is atraumatic, normocephalic. Eyes: EOMs are intact. Sclerae anicteric, they are pale. Oral mucosa is dry. NECK: Supple. LUNGS: Clear to auscultation bilaterally. No wheezes, rales, or rhonchi. CARDIAC: S1, S2. No rubs or gallops. ABDOMEN: Soft and nontender. Bowel sounds are present x4. EXTREMITIES: He is able to move all 4 extremities. There is no clubbing or cyanosis. NEUROLOGIC: He is awake, alert, oriented x3. Speech is clear. Thought process is intact. There are no gross focal deficits. SKIN: Intact. DIAGNOSTIC STUDIES/LAB DATA: WBCs are 8.2, RBCs 2.29, hemoglobin 7.5, hematocrit was 22, platelet count 347. INR is 0.94. Sodium 144, potassium 3.8 , chloride 109, carbon dioxide is 30, anion gap is 5, BUN was 16, creatinine 0.70, glucose is 122, lactic acid 3.3, calcium 8.1. ASTs were 11, ALTs were 8, alkaline phosphatase was 53. Troponin was 0.15 x2. Cholesterol was 125, LDL was 61, HDL 41. Serum alcohol was less than 10. He had a CT of the brain, radiologist's impression: No acute intracranial pathology, diffuse involutional changes and chronic small vessel ischemic changes evidence of remote right parietal infarct. He had an electrocardiogram, which showed sinus rhythm at a rate of 86. He has got a right bundle-branch block, inverted T waves in V1, 2, and 3. ASSESSMENT AND PLAN: Mr. Bridges is an 82-year-old male with a past medical history significant for chronic obstructive pulmonary disease, hyperlipidemia, type 2 diabetes, gastroesophageal reflux disease, hypothyroidism, depression, who presented to the emergency room with complaints of shaking and twitching on both sides, right worse than left, who was found to have anemia, and elevated troponin. He will be admitted inpatient for: 1. Anemia. The patient does have heme-positive guaiac stool. I suspect that his anemia is related to gastrointestinal bleeding. I will get iron studies. Dr. Murillo from Gastroenterology has been consulted. The patient will be n.p.o. after midnight for an upper endoscopy tomorrow to look for his source of bleeding. I will give him 1 unit of packed red blood cells. I will repeat an H and H q.6 hours. Monitor his vital signs. He will be also placed on telemetry. He will be placed on a Protonix drip. 2. Elevated troponin. The patient does have a troponin of 0.15 x2. I suspect this is related to demand ischemia from his anemia. I will give him 1 unit of packed red blood cells. We will continue to trend his troponins and monitor him on telemetry overnight. I will repeat an EKG in the a.m. 3. Type 2 diabetes. I will hold his Janumet and place him on fingersticks a.c. and h.s. and Lispro sliding scale a.c. 4. Hypothyroidism. The patient should continue on levothyroxine 50 mcg p.o. daily. 5. Depression. He should continue on Zoloft 75 mg as previously prescribed. 6. Chronic obstructive pulmonary disease. He should continue on Spiriva and albuterol inhalers as previously prescribed. 7. FEN. He can have consistent carb diet. 8. Code status: He is full code. 9. DVT prophylaxis: He can have SCDs as chemical DVT prophylaxis is contraindicated at this time as the patient does have GI bleeding. TIME SPENT: Time spent on this admission was 60 minutes; greater than half that time was spent at the bedside reviewing events leading thus far to his hospitalization and performing physical exam, reviewing my plan of care. I have discussed this my attending, Dr. Sneha Torres; she is in agreement with my plan. AMIE CASTANON, ENTERPRISE SOFTWARE ENGINEER [id number]/[facility] #: [id number]
[2018-12-22 01:58] LABS: Hematocrit 24 % (42-52); Hemoglobin 8.3 g/dL (14.0-18.0)
[2018-12-22] MEDS: Levothyroxine TAB* 50 MCG TAB PO SCH (05:17)
[2018-12-22 06:14] LABS: ABS Eosinophils 0.2 10^3/ul (0-0.6); ABS Lymphocytes 1.3 10^3/ul (1.0-4.8); ABS Monocytes 0.8 10^3/ul (0-0.8); ABS Neutrophils 5.7 10^3/ul (1.5-7.7); Eosinophil % 2.1 %; Hematocrit 24 % (42-52); Hemoglobin 8.2 g/dL (14.0-18.0); Mean Corpuscular HGB Conc 34 g/dL (31-36); Mean Corpuscular Hemoglobin 32 pg (27-31); Mean Corpuscular Volume 95 fL (80-94); Mean Platelet Volume 7.7 fL (7.4-10.4); Nucleated Red Blood Cells % 0.1; Platelet Count 310 10^3/uL (150-450); Red Blood Count 2.54 10^6 /uL (4.18-5.48); Red Cell Distribution Width 15 % (10-15)
[2018-12-22 06:31] LABS: Anion Gap 2 mmol/L (2-11); BUN/Creatinine Ratio 19.4 (8-20); Blood Urea Nitrogen 13 mg/dL (6-24); CO2 Carbon Dioxide 30 mmol/L (22-32); Calcium 8.1 mg/dL (8.6-10.3); Chloride 109 mmol/L (101-111); EGFR African American 138.1 (>60); EGFR Non-African American 114.1 (>60); Glucose 136 mg/dL (70-100); Potassium 3.8 mmol/L (3.5-5.0); Sodium 141 mmol/L (135-145)
[2018-12-22] MEDS: Sertraline* 25 MG TAB PO SCH ×2 (07:22→10:16)
[2018-12-22] MEDS: Finasteride TAB* 5 MG PO SCH (07:22)
[2018-12-22] MEDS: SPIRIVA Respimat* (tiotropium) 2.5 mcg/inh Inhaler INH SCH (08:06)
[2018-12-22] MEDS: Insulin LISPRO* 1 UNITS UNIT SUBCUT SCH ×3 (08:34→16:47)
[2018-12-22 11:52] LABS: Troponin I 0.22 ng/mL (<0.04)
[2018-12-22 14:48] LABS: Troponin I 0.21 ng/mL (<0.04)
--- NOTE | 2018-12-22 16:45 | PN ---
Subjective Date of Service: 12/22/18 Interval History: Patient seen and examined, no complaints. Denies SOB, no chest pain, no fever or chills. States overall he feels better since having transfusion. Family at bedside. Waiting to see GI. Objective Active Medications: Acetaminophen (Tylenol Tab*) 650 mg PO Q4H PRN PRN Reason: MILD PAIN or TEMP > 100.4 Albuterol (Ventolin Hfa Inhaler*) 2 puff INH Q4HR PRN PRN Reason: SHORTNESS OF BREATH Dextrose (Dextrose 50% Vial 50 Ml*) 25 ml IV PUSH .FOR FS < 60 - SS PRN PRN Reason: FS < 60 Finasteride (Proscar Tab*) 5 mg PO DAILY [facility] Last Admin: 12/22/18 07:22 Dose: 5 mg Sodium Chloride (Ns 0.9% 1000 Ml) 1,000 mls @ 75 mls/hr IV PER RATE [facility] Last Admin: 12/21/18 23:55 Dose: 75 mls/hr Insulin Human Lispro (Humalog*) 0 units SUBCUT [facility]; Protocol Last Admin: 12/22/18 12:50 Dose: Not Given Levothyroxine Sodium (Synthroid Tab*) 50 mcg PO 0600 [facility] Last Admin: 12/22/18 05:17 Dose: 50 mcg Sertraline HCl (Zoloft*) 75 mg PO DAILY [facility] Last Admin: 12/22/18 10:16 Dose: Not Given Tiotropium [place] (Spiriva Respimat 2.5 Mcg) 2 puff INH DAILY [facility] Last Admin: 12/22/18 08:06 Dose: 2 puff Vital Signs - 8 hr 12/22/18 12/22/18 11:15 15:15 Temperature 98.1 F 98.2 F Pulse Rate 89 73 Respiratory 20 20 Rate Blood Pressure 135/46 159/54 (mmHg) O2 Sat by Pulse 93 100 Oximetry Oxygen Devices in Use Now: None Appearance: alert, UNGA, NAD Eyes: PERRLA Ears/Nose/Mouth/Throat: Clear Oropharnyx Neck: NL Appearance and Movements; NL JVP, Trachea Midline Respiratory: Symmetrical Chest Expansion and Respiratory Effort, Clear to Auscultation Cardiovascular: NL Sounds; No Murmurs; No JVD, RRR Abdominal: NL Sounds; No Tenderness; No Distention Extremities: No Edema, No Clubbing, Cyanosis Skin: No Rash or Ulcers Neurological: Alert and Oriented x 3 Nutrition: - - NPO Result Diagrams: 12/22/18 05:42 12/22/18 05:48 Microbiology and Other Data: Microbiology 12/21/18 16:30 Stool Occult Blood (KAROLINE) - Final Stool Assess/Plan/Problems-Billing Assessment: This is an 82 year old male with hx of GERD, COPD, DMII, and depression that presented to ER with complaints of "twitching", found to have symptomatic anemia. - Patient Problems (1) Anemia Code(s): D64.9 - ANEMIA, UNSPECIFIED SNOMED Code(s): 757521301 Comment: - H&H 7.5/ at admission with heme pos stool and hx of GERD - s/p 1 unit PRBCs - GI consult appreciated, EGD today, pending results - Continue protonix (2) Elevated troponin Code(s): R74.8 - ABNORMAL LEVELS OF OTHER SERUM ENZYMES SNOMED Code(s): 891883252 Comment: - Likely demand in presence of profound anemia/GIB - No chest pain or anginal equivalents, questionable chest pain a few days ago , may be r/t anemia - Patient could have underlying CV disease, however, it would not be prudent to initiate heparin, lovenox or DAPT in GIB. Given that there are no new EKG changes and trops are only mildly elevated, would recommend stabilizing anemia and then pursuing any cardiac workup later. (3) Lactic acidosis Code(s): E87.2 - ACIDOSIS SNOMED Code(s): 05207892 Comment: - In presence of GIB, resolved after IVF, no s/s infection (4) Hypertension Code(s): I10 - ESSENTIAL (PRIMARY) HYPERTENSION SNOMED Code(s): 55068426 Comment: - Not on home meds, continue to monitor (5) COPD (chronic obstructive pulmonary disease) Code(s): J44.9 - CHRONIC OBSTRUCTIVE PULMONARY DISEASE, UNSPECIFIED SNOMED Code(s): 29100192 Comment: - Not in exacerbation, continue ninhalers and PRN nebs (6) DMII (diabetes mellitus, type 2) Comment: - On janumet at home, place on lispro SS when no longer NPO with accucheck ACHS (7) GERD (gastroesophageal reflux disease) Code(s): K21.9 - GASTRO-ESOPHAGEAL REFLUX DISEASE WITHOUT ESOPHAGITIS SNOMED Code(s): 143139793 Comment: - On protonix, pending results of EGD (8) Hypothyroid Code(s): E03.9 - HYPOTHYROIDISM, UNSPECIFIED SNOMED Code(s): 50706765 Comment: - Continue synthroid (9) Depression Code(s): F32.9 - MAJOR DEPRESSIVE DISORDER, SINGLE EPISODE, UNSPECIFIED SNOMED Code(s): 21477809 Comment: - Continue sertraline (10) DVT prophylaxis Code(s): Z29.9 - ENCOUNTER FOR PROPHYLACTIC MEASURES, UNSPECIFIED SNOMED Code( s): 277528474 Comment: - SCDs, ambulate (11) Full code status Code(s): Z78.9 - OTHER SPECIFIED HEALTH STATUS SNOMED Code(s): 502974947 Status and Disposition: Inpatient, dispo to home when medically optimized.
[2018-12-22] MEDS ORDERED: fentaNYL* 50 MCG/ML 2 ML VIAL (100 MCG VIAL) ONE (17:47)
[2018-12-22] MEDS ORDERED: Midazolam* 1 MG/ML 10 ML VIAL (10 MG) ONE (17:47)
--- NOTE | 2018-12-22 17:53 | CONS ---
GASTROENTEROLOGY CONSULT: DATE: 12/22/18 CONSULTING PHYSICIANS: Dr. Iris Puente, Dr. Rama Saini. REASON FOR CONSULT: Dark heme-positive stool and a fall in hemoglobin to 7.5 from a baseline 21 months earlier at 14.0. 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 In general, he has not been treated for gastrointestinal problems. He is a poor historian, though his peldtxdi-kd-xsp assists greatly. Apparently, about 3 weeks ago, he began passing dark stool. This was reconstructed in retrospect as he did not tell anyone at the time. Last night, he came to the emergency room with twitching and complaining of fatigue. He was not very helpful historically as to direct symptoms. Over the last 6 months, there have been intermittent complaints of diarrhea. He would occasionally be incontinent. He has lost about 30 pounds. At some point in the last few weeks, he began passing dark stool. He does not take aspirin or NSAIDs and they were questioned in detail. He was taking NSAIDs 7 years ago when he had elbow surgery. He recently switched to Dr. Saini for primary care and a previous drug pantoprazole was restarted. It had been started 10 or more years ago because of dyspepsia and then feeling better, he stopped taking it and had been off it probably a couple of years when Dr. Saini restarted it. He has had no complaints of dysphagia or vomiting. PAST MEDICAL HISTORY: 1. Morbid obesity. 2. COPD - he quit smoking over 10 years ago. 3. Umbilical hernia. 4. Hypothyroidism - on replacement. 5. Vro-geulgnr-cqqsqdzux diabetes. 6. Depression. MEDS: Outpatient, pantoprazole- taking about twice a week for the past 6 weeks ; Zoloft 75; Janumet 50/500; levothyroxine 50; finasteride 5; loperamide p.r.n. SOCIAL HISTORY: His in 2010 and his son and pbaukjtd-po-soj moved in with him. He has maybe 1 drink a week. He does not smoke anymore. He does not have any dietary restrictions. He has never had a colonoscopy or an upper endoscopy. REVIEW OF SYSTEMS: No history of syncope, arrhythmias, cardiac problems, MD, CVA, seizures, hepatitis, liver problems, or hematuria. EXAM: He is an elderly man, appearing somewhat unkempt with a multi-day growth of morejon. He is hard of hearing. There is no icterus. He has no adenopathy. Breath sounds are symmetrically diminished. Heart tones are regular. His abdomen is obese, massively so with an umbilical hernia. There is no tenderness or mass, but the exam is limited. Extremities show no edema. LABS: INR 0.94. Hemoglobin 7.5, MCV 95. BUN 13, creatinine 0.67. Hemoglobin A1c 8.8. No iron or B12 levels available. HOSPITAL COURSE: Transfused 1 unit. Troponin that was 0.15 on admission has continued to be mildly elevated at 0.21. It was felt to be demand ischemia. IMPRESSION: This 82-year-old man who has a history of what sounds like most likely gastroesophageal reflux disease and was on a PPI for a number of years, has recently had the PPI restarted. He has had dark stool reported for a number of weeks, though his BUN is not elevated. He does not take aspirin or NSAIDs. His CBC shows a normochromic anemia. The picture is unclear as to subacute upper GI bleeding recently stopped vs proximal colonic bleeding. For the moment, the first step will be to do upper endoscopy. Whether he is ready for colonoscopy is uncertain. Another transfusion or an iron infusion may be needed. Iron and B12 levels are indicated. [id number]/[facility] #: [id number] [facility]
[2018-12-22] MEDS ORDERED: Iron Sucrose* 200 MG in NS 0.9% 100 ML* 100 ML IVPB ONE (19:30)
[2018-12-22 19:35] LABS: % Iron Saturation 17 % (15-55); Iron 52 ug/dL (50-212); Total Iron Binding Capacity 312 mcg/dL (250-450); Transferrin 223 mg/dL (203-362)
[2018-12-22 20:01] LABS: Folate 9.22 ng/mL (>3.99)
--- NOTE | 2018-12-22 22:15 | PRO ---
DATE: 12/22/18 - ROOM #446 REFERRING PHYSICIAN: Rama Saini.* PROCEDURE: Upper gastrointestinal endoscopy and CLOtest. INDICATION: This 82-year-old man came in feeling shaky and weak. He was found to have a hemoglobin of 7.5, positive Hemoccult. His MCV is normal and his BUNs were under 120. He had no overt gastrointestinal bleeding, although said that his stools have been dark for several weeks. That history was variable. He has never had any endoscopies. Informed consent was obtained. The hospitalist service felt that his troponin elevation was "demand ischemia." ENDOSCOPIST: Dr. Harley. MEDICATIONS: Midazolam 4, fentanyl 25. FINDINGS: He is a substantially overweight elderly man, appearing tired, but in no overt distress. He was positioned left side down and moderate sedation induced with small sequential doses of medication. He tolerated the exam well. EGD: Larynx - symmetric, limited views. Esophagus - easily entered and the mucosa is normal in the upper, mid, and lower esophagus down to an area of hyperkeratosis, appearing consistent with caking of medication in that location. The EG junction was loose and there was a small to medium hiatal hernia. There was some irritation and erosive change in the distal esophagus, though no nodule or mass or shelf. There was no stricture. Stomach - a very mild wispy gastritis seen. The rugal pattern is normal. Gastric antrum appeared normal. A CLOtest was taken. Duodendum - the pylorus is wide open and appearing nonfunctional. There was no scar or ulcer, just a wide open, atonic pylorus. The bulb had some minimal Alesia's erythema, but no AVMs and no blood. There were no erosions, exudate or ulcers. The second through fourth portion of the duodenum were normal. IMPRESSION: 1. Small to medium hiatal hernia. 2. Clinical gastroesophageal reflux disease with medication, irritation of lower esophagus. 3. Minimal gastritis. 4. Anemia - source not established with this exam. His hemoglobin 8 and significant chronic obstructive pulmonary disease, it seems best to give him iron, document his iron and B12 status and defer colonoscopy for 2 to 3 weeks. Addendum: Clotest negative [id number]/[facility] #: [id number] MTDD
[2018-12-23] MEDS: NS 0.9% 1000 ML** 1,000 ML IV SCH (02:02)
[2018-12-23 05:59] LABS: ABS Eosinophils 0.2 10^3/ul (0-0.6); ABS Lymphocytes 1.1 10^3/ul (1.0-4.8); ABS Monocytes 0.8 10^3/ul (0-0.8); ABS Neutrophils 4.6 10^3/ul (1.5-7.7); Eosinophil % 3.6 %; Hematocrit 23 % (42-52); Hemoglobin 7.8 g/dL (14.0-18.0); Lymphocyte % 16.8 %; Mean Corpuscular HGB Conc 34 g/dL (31-36); Mean Corpuscular Hemoglobin 32 pg (27-31); Mean Corpuscular Volume 95 fL (80-94); Mean Platelet Volume 8.1 fL (7.4-10.4); Nucleated Red Blood Cells % 0.3; Platelet Count 305 10^3/uL (150-450); Red Blood Count 2.47 10^6 /uL (4.18-5.48); Red Cell Distribution Width 16 % (10-15); White Blood Count 6.8 10^3/uL (3.5-10.8)
[2018-12-23] MEDS: Levothyroxine TAB* 50 MCG TAB PO SCH (06:03)
[2018-12-23 06:24] LABS: BUN/Creatinine Ratio 14.5 (8-20); Calcium 7.9 mg/dL (8.6-10.3); EGFR African American 119.4 (>60); EGFR Non-African American 98.7 (>60); Potassium 3.6 mmol/L (3.5-5.0)
[2018-12-23] MEDS: SPIRIVA Respimat* (tiotropium) 2.5 mcg/inh Inhaler INH SCH (08:24)
[2018-12-23] MEDS: Insulin LISPRO* 1 UNITS UNIT SUBCUT SCH ×3 (10:08→18:27)
[2018-12-23] MEDS: Finasteride TAB* 5 MG PO SCH (10:09)
[2018-12-23] MEDS: Sertraline* 25 MG TAB PO SCH (10:09)
[2018-12-23] MEDS ORDERED: PEG 3000 GI LAVAGE* 1 GALLON PO ONE (15:00)
--- NOTE | 2018-12-23 15:50 | PN ---
Subjective Date of Service: 12/23/18 Interval History: Patient seen and examined. H&H low again today. No bloody BMs overnight. Patient denies abdominal pain, does express fatigue, no SOB, no chest pain, no further complaints. Objective Active Medications: Acetaminophen (Tylenol Tab*) 650 mg PO Q4H PRN PRN Reason: MILD PAIN or TEMP > 100.4 Albuterol (Ventolin Hfa Inhaler*) 2 puff INH Q4HR PRN PRN Reason: SHORTNESS OF BREATH Dextrose (Dextrose 50% Vial 50 Ml*) 25 ml IV PUSH .FOR FS < 60 - SS PRN PRN Reason: FS < 60 Finasteride (Proscar Tab*) 5 mg PO DAILY [facility] Last Admin: 12/23/18 10:09 Dose: 5 mg Sodium Chloride (Ns 0.9% 1000 Ml) 1,000 mls @ 75 mls/hr IV PER RATE [facility] Last Admin: 12/23/18 02:02 Dose: 75 mls/hr Insulin Human Lispro (Humalog*) 0 units SUBCUT [facility]; Protocol Last Admin: 12/23/18 13:17 Dose: 3 units Levothyroxine Sodium (Synthroid Tab*) 50 mcg PO 0600 [facility] Last Admin: 12/23/18 06:03 Dose: 50 mcg Magnesium Citrate (Citrate Of Magnesia*) 300 ml PO ONCE ONE Stop: 12/24/18 07:01 Sertraline HCl (Zoloft*) 75 mg PO DAILY [facility] Last Admin: 12/23/18 10:09 Dose: 75 mg Tiotropium [place] (Spiriva Respimat 2.5 Mcg) 2 puff INH DAILY [facility] Last Admin: 12/23/18 08:24 Dose: Not Given Vital Signs - 8 hr 12/23/18 12/23/18 12/23/18 08:00 09:24 11:15 Temperature 98.2 F 97.2 F Pulse Rate 68 67 Respiratory 67 16 19 Rate Blood Pressure 132/58 127/35 (mmHg) O2 Sat by Pulse 98 100 Oximetry Oxygen Devices in Use Now: Nasal Cannula Appearance: alert, pale, NAD Eyes: PERRLA Ears/Nose/Mouth/Throat: Mucous Membranes Moist Neck: NL Appearance and Movements; NL JVP, Trachea Midline Respiratory: Symmetrical Chest Expansion and Respiratory Effort, Clear to Auscultation Cardiovascular: NL Sounds; No Murmurs; No JVD, RRR, No Edema Abdominal: NL Sounds; No Tenderness; No Distention Extremities: No Edema, No Clubbing, Cyanosis Skin: No Rash or Ulcers Neurological: - - A&Ox2 Nutrition: - - CLD Result Diagrams: 12/23/18 04:58 12/23/18 04:58 Microbiology and Other Data: Microbiology 12/21/18 16:30 Stool Occult Blood (KAROLINE) - Final Stool Assess/Plan/Problems-Billing Assessment: This is an 82 year old male with hx of GERD, COPD, DMII, and depression that presented to ER with complaints of "twitching", found to have symptomatic anemia. - Patient Problems (1) Anemia Code(s): D64.9 - ANEMIA, UNSPECIFIED SNOMED Code(s): 645111428 Comment: - H&H 7.5/ at admission with heme pos stool and hx of GERD - s/p 1 unit PRBCs at admission - EGD with no bleeding on 12/22/18, GI will see patient again today and potentially prep for colonoscopy tomorrow, as H&H is 7.5/ again today - Additional 1unit PRBCs being infused - Rectal exam today with no ira blood or melena (2) Elevated troponin Code(s): R74.8 - ABNORMAL LEVELS OF OTHER SERUM ENZYMES SNOMED Code(s): 183698284 Comment: - Likely demand in presence of profound anemia/GIB - No chest pain or anginal equivalents, questionable chest pain a few days ago , may be r/t anemia - Patient could have underlying CV disease, however, it would not be prudent to initiate heparin, lovenox or DAPT in GIB. Given that there are no new EKG changes and trops are only mildly elevated, would recommend stabilizing anemia and then pursuing any cardiac workup later. (3) Lactic acidosis Code(s): E87.2 - ACIDOSIS SNOMED Code(s): 39700291 Comment: - In presence of potential GIB, resolved after IVF, no s/s infection (4) Hypertension Code(s): I10 - ESSENTIAL (PRIMARY) HYPERTENSION SNOMED Code(s): 58000176 Comment: - Not on home meds, continue to monitor (5) COPD (chronic obstructive pulmonary disease) Code(s): J44.9 - CHRONIC OBSTRUCTIVE PULMONARY DISEASE, UNSPECIFIED SNOMED Code(s): 85990556 Comment: - Not in exacerbation, continue ninhalers and PRN nebs (6) DMII (diabetes mellitus, type 2) Comment: - On janumet at home, place on lispro SS when no longer NPO with accucheck ACHS (7) GERD (gastroesophageal reflux disease) Code(s): K21.9 - GASTRO-ESOPHAGEAL REFLUX DISEASE WITHOUT ESOPHAGITIS SNOMED Code(s): 155467476 Comment: - On protonix, EGD with hiatal hernia (8) Hypothyroid Code(s): E03.9 - HYPOTHYROIDISM, UNSPECIFIED SNOMED Code(s): 81586678 Comment: - Continue synthroid (9) Depression Code(s): F32.9 - MAJOR DEPRESSIVE DISORDER, SINGLE EPISODE, UNSPECIFIED SNOMED Code(s): 65270839 Comment: - Continue sertraline (10) DVT prophylaxis Code(s): Z29.9 - ENCOUNTER FOR PROPHYLACTIC MEASURES, UNSPECIFIED SNOMED Code( s): 104006487 Comment: - SCDs, ambulate (11) Full code status Code(s): Z78.9 - OTHER SPECIFIED HEALTH STATUS SNOMED Code(s): 342182803 Status and Disposition: Inpatient, dispo to home when medically optimized.
--- NOTE | 2018-12-23 16:51 | PN ---
Progress Note - Progress Note Date of Service: 12/23/18 Note: GI Progress Note Patient seen and examined. Family at bedside. No overt signs of bleeding. Transfused 1 unit on admit. Denies any pain. VS: 127/35, P-67, T-97.2, RR-19 Gen: alert,nad heent: perrla, eomi, sclera anicteric, conjunctiva slightly pale CVS: [id number] Resp: slightly diminished base Abd: soft, nt, nd, bs+ Ext: scattered ecchymoses Lab: Hgb 8.2-> 7.8 Imp: Normocytic anemia component of iron deficiency, reported melena Rec: PMD and family express concerns with ability to prep for colon as outpatient. In addition his hgb has continued to drift down. He has never had a colonoscopy. Discussed risks, benefits and alternatives and would like to proceed. Will plan 4L golyte tonight and 1 bottle mag cit in AM. Tyler Lidia DO 12/23/18 1700
[2018-12-24] MEDS: NS 0.9% 1000 ML** 1,000 ML IV SCH ×2 (02:46→22:07)
[2018-12-24 05:26] LABS: Hematocrit 26 % (42-52); Hemoglobin 9.1 g/dL (14.0-18.0); Mean Corpuscular HGB Conc 35 g/dL (31-36); Mean Corpuscular Hemoglobin 32 pg (27-31); Mean Corpuscular Volume 93 fL (80-94); Mean Platelet Volume 7.8 fL (7.4-10.4); Platelet Count 323 10^3/uL (150-450); Red Blood Count 2.83 10^6 /uL (4.18-5.48); Red Cell Distribution Width 17 % (10-15)
[2018-12-24] MEDS: Levothyroxine TAB* 50 MCG TAB PO SCH (05:33)
[2018-12-24] MEDS ORDERED: Magnesium CITRATE* 300 ML BTL PO ONE (07:00)
[2018-12-24] MEDS: Insulin LISPRO* 1 UNITS UNIT SUBCUT SCH ×3 (07:34→16:58)
[2018-12-24] MEDS: SPIRIVA Respimat* (tiotropium) 2.5 mcg/inh Inhaler INH SCH (07:38)
[2018-12-24] MEDS: Sertraline* 25 MG TAB PO SCH (08:21)
[2018-12-24] MEDS: Finasteride TAB* 5 MG PO SCH (08:21)
--- NOTE | 2018-12-24 16:00 | PN ---
Subjective Date of Service: 12/24/18 Interval History: Patient seen and examined. Plan for colonoscopy this afternoon. No overnight events. No bleeding noted. Patient has no complaints other than fatigue. Objective Active Medications: Acetaminophen (Tylenol Tab*) 650 mg PO Q4H PRN PRN Reason: MILD PAIN or TEMP > 100.4 Albuterol (Ventolin Hfa Inhaler*) 2 puff INH Q4HR PRN PRN Reason: SHORTNESS OF BREATH Dextrose (Dextrose 50% Vial 50 Ml*) 25 ml IV PUSH .FOR FS < 60 - SS PRN PRN Reason: FS < 60 Finasteride (Proscar Tab*) 5 mg PO DAILY [facility] Last Admin: 12/24/18 08:21 Dose: 5 mg Sodium Chloride (Ns 0.9% 1000 Ml) 1,000 mls @ 75 mls/hr IV PER RATE [facility] Last Admin: 12/24/18 02:46 Dose: 75 mls/hr Insulin Human Lispro (Humalog*) 0 units SUBCUT [facility]; Protocol Last Admin: 12/24/18 12:20 Dose: Not Given Levothyroxine Sodium (Synthroid Tab*) 50 mcg PO 0600 [facility] Last Admin: 12/24/18 05:33 Dose: 50 mcg Sertraline HCl (Zoloft*) 75 mg PO DAILY [facility] Last Admin: 12/24/18 08:21 Dose: 75 mg Tiotropium [place] (Spiriva Respimat 2.5 Mcg) 2 puff INH DAILY [facility] Last Admin: 12/24/18 07:38 Dose: 2 puff Vital Signs - 8 hr 12/24/18 12/24/18 08:00 11:15 Temperature 98.3 F Pulse Rate 67 Respiratory 19 21 Rate Blood Pressure 127/63 (mmHg) O2 Sat by Pulse 100 Oximetry Oxygen Devices in Use Now: Nasal Cannula Appearance: alert, NAD Ears/Nose/Mouth/Throat: Mucous Membranes Moist Neck: NL Appearance and Movements; NL JVP, Trachea Midline Respiratory: Symmetrical Chest Expansion and Respiratory Effort, Clear to Auscultation Cardiovascular: NL Sounds; No Murmurs; No JVD, RRR Abdominal: NL Sounds; No Tenderness; No Distention Extremities: No Clubbing, Cyanosis Skin: No Rash or Ulcers Neurological: - - A&Ox2 Nutrition: - - clears Result Diagrams: 12/24/18 04:54 12/23/18 04:58 Microbiology and Other Data: Microbiology 12/21/18 16:30 Stool Occult Blood (KAROLINE) - Final Stool Assess/Plan/Problems-Billing Assessment: This is an 82 year old male with hx of GERD, COPD, DMII, and depression that presented to ER with complaints of "twitching", found to have symptomatic anemia. - Patient Problems (1) Anemia Code(s): D64.9 - ANEMIA, UNSPECIFIED SNOMED Code(s): 995228915 Comment: - H&H 7.5/ at admission with heme pos stool and hx of GERD - s/p 1 unit PRBCs at admission and additional unit yesterday, no bleeding on rectal exam 12/23 - HgB rebounded to 9.1 post transfusion - EGD with no bleeding on 12/22/18, plan for colonoscopy today (2) Elevated troponin Code(s): R74.8 - ABNORMAL LEVELS OF OTHER SERUM ENZYMES SNOMED Code(s): 201584870 Comment: - Likely demand in presence of profound anemia/GIB - No chest pain or anginal equivalents, questionable chest pain a few days ago , may be r/t anemia - Patient could have underlying CV disease, however, it would not be prudent to initiate heparin, lovenox or DAPT in GIB. Given that there are no new EKG changes and trops are only mildly elevated, would recommend stabilizing anemia and then pursuing any cardiac workup later. (3) Lactic acidosis Code(s): E87.2 - ACIDOSIS SNOMED Code(s): 71913464 Comment: - In presence of potential GIB, resolved after IVF, no s/s infection (4) Hypertension Code(s): I10 - ESSENTIAL (PRIMARY) HYPERTENSION SNOMED Code(s): 29718497 Comment: - Not on home meds, continue to monitor (5) COPD (chronic obstructive pulmonary disease) Code(s): J44.9 - CHRONIC OBSTRUCTIVE PULMONARY DISEASE, UNSPECIFIED SNOMED Code(s): 54550299 Comment: - Not in exacerbation, continue ninhalers and PRN nebs (6) DMII (diabetes mellitus, type 2) Comment: - On janumet at home, place on lispro SS when no longer NPO with accucheck ACHS (7) GERD (gastroesophageal reflux disease) Code(s): K21.9 - GASTRO-ESOPHAGEAL REFLUX DISEASE WITHOUT ESOPHAGITIS SNOMED Code(s): 551940841 Comment: - On protonix, EGD with hiatal hernia (8) Hypothyroid Code(s): E03.9 - HYPOTHYROIDISM, UNSPECIFIED SNOMED Code(s): 15534065 Comment: - Continue synthroid (9) Depression Code(s): F32.9 - MAJOR DEPRESSIVE DISORDER, SINGLE EPISODE, UNSPECIFIED SNOMED Code(s): 66530279 Comment: - Continue sertraline (10) DVT prophylaxis Code(s): Z29.9 - ENCOUNTER FOR PROPHYLACTIC MEASURES, UNSPECIFIED SNOMED Code( s): 188014013 Comment: - SCDs, ambulate (11) Full code status Code(s): Z78.9 - OTHER SPECIFIED HEALTH STATUS SNOMED Code(s): 199988309 Status and Disposition: Inpatient, dispo to home when medically optimized.
[2018-12-24] MEDS ORDERED: fentaNYL* 50 MCG/ML 2 ML VIAL (100 MCG VIAL) ONE (17:32)
[2018-12-24] MEDS ORDERED: Midazolam* 1 MG/ML 10 ML VIAL (10 MG) ONE (17:32)
--- NOTE | 2018-12-24 23:28 | PRO ---
DATE: 12/24/18 - ROOM #446 REFERRING PHYSICIAN: Rama Saini * PROCEDURE: Colonoscopy and ileoscopy with biopsy of proximal transverse colon sessile, pale polyp. INDICATION: This 82-year-old man who has never had a colonoscopy was admitted 3 days ago with a hemoglobin of 7.5. He had a history of dark stools for a number of weeks. There had been no syncope. See separate consult. Upper endoscopy was unrevealing. The decision as to whether to have a colonoscopy now had many factors. A support in the hospital was paramount and he did prep yesterday. Much black material came through. He has not had any hemodynamic signs. After 2 units his hemoglobin was up to 9.1, his BUN on admission at 16 decreased to 11. Informed consent was obtained with opportunity for questions and special concerns. ENDOSCOPIST: Dr. Harley. MEDICATIONS: Midazolam 2, fentanyl 25. FINDINGS: He is a substantially overweight elderly male who does not appear in good health overall. The abdomen is soft and nontender though the exam is limited. Rectal is normal. Initial view show a fair prep although the reddish dark black brown fluid is for the most part easily suctioned. There is 2 to 3+ diverticulosis in the sigmoid without any scarring or inflammatory signs. Mucosa in general is normal. There were a few hyperplastic polyps in the rectosigmoid. Passage around does not disclose any fresh blood. There was a sessile polyp in the proximal transverse, soft, and pale, clearly not showing any signs of bleeding. The scope was passed to the cecum. Lavage showed 3+ diverticulosis there. There were no adherent blood clots. The appendiceal orifice was normal. The ileocecal valve and 35 cm of terminal ileum normal. During withdrawal the polyp was biopsied. Smooth lipoma was also seen. The polyp was biopsied. During withdrawal, the diverticula were again seen and no adherent clot was seen. IMPRESSION: 1. Pancolonic diverticulosis - moderately severe right colon slightly more prominent. Addendum: colon polyp TA no HGD 2. Right colon lipoma. 3. Colon polyp - proximal transverse, not a source of anemia or acute bleeding. 4. Anemia with history suggesting subacute source - most likely diverticulosis has caused this most likely from the right colon. A small bowel bleed is possible. There is no clinical indication right now to extend the workup. He could be observed iron given parenterally cautiously p.o. and have his Hemoccult status followed as an outpatient. [id number]/[facility] #: [id number]
[2018-12-25] MEDS: Levothyroxine TAB* 50 MCG TAB PO SCH (05:23)
[2018-12-25] MEDS: Insulin LISPRO* 1 UNITS UNIT SUBCUT SCH ×2 (07:31→12:59)
[2018-12-25] MEDS: Sertraline* 25 MG TAB PO SCH (08:39)
[2018-12-25] MEDS: Finasteride TAB* 5 MG PO SCH (08:39)
[2018-12-25] MEDS: SPIRIVA Respimat* (tiotropium) 2.5 mcg/inh Inhaler INH SCH (09:43)
[2018-12-25 11:12] LABS: ABS Basophils 0.1 10^3/ul (0-0.2); ABS Eosinophils 0.3 10^3/ul (0-0.6); ABS Monocytes 0.7 10^3/ul (0-0.8); ABS Neutrophils 4.7 10^3/ul (1.5-7.7); Eosinophil % 3.7 %; Hematocrit 26 % (42-52); Hemoglobin 8.7 g/dL (14.0-18.0); Lymphocyte % 15.4 %; Mean Corpuscular HGB Conc 34 g/dL (31-36); Mean Corpuscular Hemoglobin 32 pg (27-31); Mean Corpuscular Volume 94 fL (80-94); Mean Platelet Volume 7.2 fL (7.4-10.4); Nucleated Red Blood Cells % 0.2; Platelet Count 303 10^3/uL (150-450); Red Blood Count 2.72 10^6 /uL (4.18-5.48); Red Cell Distribution Width 16 % (10-15); White Blood Count 6.7 10^3/uL (3.5-10.8)
[2018-12-25 11:49] VITALS: BP 149/66
[2018-12-25] MEDS ORDERED: Iron Sucrose* 200 MG in NS 0.9% 100 ML* 100 ML IVPB ONE (13:30)
--- NOTE | 2018-12-25 22:43 | DS ---
CC: Dr. Saini; Dr. Harley.* DISCHARGE SUMMARY: DATE OF ADMISSION: 12/21/18 DATE OF DISCHARGE: 12/25/18 PRIMARY CARE PROVIDER: Dr. Saini. ATTENDING PHYSICIAN WHILE IN THE HOSPITAL: Dr. John Brewer * (dictated by KRISTINE Leon) CONSULTING HEALTH RECORD TECHNICIAN: Dr. Harley. PRIMARY DIAGNOSES: 1. Gastrointestinal bleed, likely secondary to diverticular bleeding. 2. Elevated troponin, likely ischemic demand in the presence of gastrointestinal bleed. 3. Lactic acidosis, likely related to ischemia in the setting of anemia and gastrointestinal bleed. SECONDARY DIAGNOSES: 1. Chronic obstructive pulmonary disease, on 2 L of oxygen at home. 2. Hyperlipidemia. 3. Type 2 diabetes. 4. Gastroesophageal reflux disease. 5. Hypothyroidism. 6. Depression PROCEDURES WHILE IN THE HOSPITAL: Colonoscopy on 12/24/[address] Harley. Findings: Pancolonic diverticulosis, proximal transverse colon polyp, right colon lipoma. Please see the procedure report for further information. Endoscopy on 12/22/18, impression: 1. Small to medium hiatal hernia. 2. Clinical GERD with medication, irritation of lower esophagus. 3. Minimal gastritis. HISTORY OF PRESENT ILLNESS/HOSPITAL COURSE: Annalisa Bridges is an 82-year-old white male with past medical history significant for COPD, on 2 L of oxygen at home; type 2 diabetes and hypothyroidism who presents to the emergency department due to weakness on 12/21/18. Please see admitting history and physical by Rama Castanon NP for further information. The patient was found to be anemic initially with a hemoglobin of 7.5, hematocrit of 22. Transferrin 223, ferritin 34, iron 52, TIBC 312, and percent saturation 17. The patient and had a positive Hemoccult and was then placed on a Protonix drip. Ultimately, he had a colonoscopy which found extensive diverticulosis. He was not noticing black or bloody stools on the day of discharge. The patient had increasing elevated troponin and was given a total of 2 units of PRBCs during his hospital stay. He had no anginal symptoms and he had no new EKG changes. This elevation of troponin was deemed likely secondary to demand ischemia in the setting of his GI bleeding and subsequent anemia. The patient had an endoscopy which had no source of GI bleed and gastroenterology team proceeded to colonoscopy. The patient was found to have extensive diverticulosis and therefore the thought was that the patient had a diverticular bleed, which is why his bleeding has since stopped. Ultimately, the patient had good hemoglobin and hematocrit rise. His hemoglobin was 9.1 on day of discharge. Dr. Harley recommended 1 dose of IV iron prior to discharge, otherwise felt he was safe for discharge. On the day of discharge the patient is feeling well, he has not had the bowel movement, has no chest pain, difficulty breathing or dizziness or lightheadedness at rest. Denies fever, chills, abdominal pain and nausea. PHYSICAL EXAM: General: Obese, elderly male sitting on side of the hospital bed, appearing comfortable in no acute distress. Eyes: PERRL. Sclerae anicteric. ENT: Mucous membranes moist. Lungs: Clear to auscultation throughout. Cardio: Regular rate and rhythm without murmurs, rubs, or gallops. Heart sounds distant. Abdomen: Soft, nontender, nondistended. Extremities: No clubbing, cyanosis or edema. Neuro: The patient is alert and oriented x3. No focal deficits, hard of hearing. DISCHARGE PLAN: Diet: Low carbohydrate diet for diabetes. Activity: The patient may return to normal activities as tolerated on his normal 2 L oxygen. The patient is advised to return to emergency department if experiencing black stools, bright red blood per rectum, shortness of breath, loss of consciousness , chest pain or severe lightheadedness. Dr. Harley recommended the patient take a Women's Centrum vitamin for daily iron supplementation. He will be following up with Dr. Harley within 1 month and on the day leading up to this reevaluation he is advised to call the office to establish repeat blood count labs. Additionally, the patient was advised to follow up with his primary care provider in 1 week and at the time of this follow up he would be of benefit for patient to have repeat blood counts as well. DISCHARGE MEDICATIONS: Centrum Women's Multivitamin 1 tab p.o. daily Continued Home Medications: 1. Finasteride 5 mg p.o. daily. 2. Synthroid 50 mcg p.o. daily. 3. Zoloft 25 mg p.o. daily. 4. Simvastatin 20 mg p.o. daily. 5. Pantoprazole 40 mg p.o. daily. 6. Sitagliptin/metformin 50 mg/500 mg 1 tab p.o. b.i.d. 7. Albuterol 2 puff inhaled q.4 hours p.r.n. shortness breath/wheezing. 8. Mucinex 600 mg p.o. b.i.d. 9. Loperamide 2 mg p.o. q.4 hours p.r.n. diarrhea. 10. Spiriva 1 inhaled p.o. daily. CONDITION ON DISCHARGE: Stable. DISPOSITION: Home. TIME SPENT: Approximately 40 minutes was spent on this discharge, approximately half of this time spent at bedside evaluating the patient and discussing the plan of care. KRISTINE LEON [id number]/[facility] [place] [id number] MTDD
== END 2018-12-25 15:45 | disposition home health service (06) | DRG 378 ==
LOC: ED 14:26 → MEDTELE 18:43
PROVIDERS: ADMIT Hospitalist; ATTEND Internal Medicine
PROC: 30233N1 Transfusion of Nonautologous Red Blood Cells into Peripheral Vein, Percutaneous Approach (ICD-10-PCS; principal; 2018-12-21)
PROC: 0DD68ZX Extraction of Stomach, Via Natural or Artificial Opening Endoscopic, Diagnostic (ICD-10-PCS; 2018-12-22)
PROC: 0DDE8ZX Extraction of Large Intestine, Via Natural or Artificial Opening Endoscopic, Diagnostic (ICD-10-PCS; 2018-12-24)
DX: K57.31 Diverticulosis of large intestine without perforation or abscess with bleeding (principal); I24.8 Other forms of acute ischemic heart disease; E87.2 Acidosis; J44.9 Chronic obstructive pulmonary disease, unspecified; Z99.81 Dependence on supplemental oxygen; E66.01 Morbid (severe) obesity due to excess calories; K92.1 Melena; D64.9 Anemia, unspecified; E11.9 Type 2 diabetes mellitus without complications; E78.5 Hyperlipidemia, unspecified; K21.9 Gastro-esophageal reflux disease without esophagitis; E03.9 Hypothyroidism, unspecified; F32.9 Major depressive disorder, single episode, unspecified; I10 Essential (primary) hypertension; R74.8 Abnormal levels of other serum enzymes; K63.5 Polyp of colon; D17.79 Benign lipomatous neoplasm of other sites; K42.9 Umbilical hernia without obstruction or gangrene; K44.9 Diaphragmatic hernia without obstruction or gangrene; K29.70 Gastritis, unspecified, without bleeding; Z79.84 Long term (current) use of oral hypoglycemic drugs; Z79.51 Long term (current) use of inhaled steroids; Z79.899 Other long term (current) drug therapy; Z82.3 Family history of stroke; Z80.0 Family history of malignant neoplasm of digestive organs; Z87.891 Personal history of nicotine dependence; Z68.33 Body mass index [BMI] 33.0-33.9, adult
CPT/HCPCS: 36415; 70450; 71046; 80048; 80053; 80061; 80320; 82270; 82607; 82728; 82746; 83540; 83550; 83605; 84484; 85014; 85018; 85025; 85027; 85610; 86850; 86900; 86901; 86922; 87077; 88305; 93005; 94640; 96374; 99156; 99157; 99284; A9270-GY; G0480; J1756; J2250; J3010; J3535; P9040

== ENCOUNTER 2022-01-09 12:03 | Inpatient (IN) ==
[2022-01-09 13:33] LABS: ABS Basophils 0.1 10^3/ul (0-0.2); ABS Lymphocytes 0.7 10^3/ul (1.0-4.8); ABS Monocytes 1.2 10^3/ul (0-0.8); ABS Neutrophils 18.5 10^3/ul (1.5-7.7); Eosinophil % 0.1 %; Hematocrit 38 % (42-52); Hemoglobin 12.5 g/dL (14.0-18.0); Lymphocyte % 3.4 %; Mean Corpuscular HGB Conc 33 g/dL (31-36); Mean Corpuscular Hemoglobin 32 pg (27-31); Mean Corpuscular Volume 98 fL (80-94); Mean Platelet Volume 8.3 fL (7.4-10.4); Platelet Count 327 10^3/uL (150-450); Red Blood Count 3.89 10^6 /uL (4.18-5.48); Red Cell Distribution Width 15 % (10-15); White Blood Count 20.5 10^3/uL (3.5-10.8)
[2022-01-09 14:09] LABS: Albumin 3.9 g/dL (3.2-5.2); Albumin/Globulin Ratio 1.4 (1-3); C Reactive Protein 16.35 mg/L (<8.01); Calcium 8.9 mg/dL (8.6-10.3); Globulin 2.7 g/dL (2-4); Total Bilirubin 3.5 mg/dL (0.2-1.0); Total Protein 6.6 g/dL (6.4-8.9)
[2022-01-09] MEDS ORDERED: Lactated Ringers 1000 ml BAG 1,000 ML IV ONE ×2 (14:13→18:33)
[2022-01-09] MEDS ORDERED: metroNIDAZOLE IV 500 MG/100ML 500 MG/100 ML BAG IVPB ONE (14:14)
[2022-01-09] MEDS ORDERED: Cefepime 2 GM in Dextrose 2 GM/50 ML BAG IV ONE (14:14)
[2022-01-09] MEDS ORDERED: Iodixanol (CONTRAST) 320 MG/ML 100 ML SDV IV ONE (14:48)
[2022-01-09 14:53] LABS: High Sensitivity Troponin 1 Hr 137 pg/mL (<20)
[2022-01-09] MEDS ORDERED: Vancomycin 1,000 MG in NS 0.9% 250 ml 250 ML IVPB SCH (15:00)
[2022-01-09] MEDS ORDERED: Vancomycin 1,500 MG in NS 0.9% 250 ml 250 ML IVPB ONE (15:00)
[2022-01-09 16:07] LABS: Direct Bilirubin 2.2 mg/dL (0.03-0.18); Indirect Bilirubin 1.3 mg/dL (0.3-1.0)
[2022-01-09] MEDS ORDERED: Albuterol HFA INHALER 8 gm MDI INH PRN (18:02)
[2022-01-09] MEDS: Enoxaparin 40 MG/0.4 ML SYR SUBCUT SCH (19:31)
[2022-01-09] MEDS ORDERED: Dextrose 50% Syringe 50 ml 25 GM/50 ML SYRINGE IV PUSH PRN (19:58)
[2022-01-10] MEDS ORDERED: Cefepime 2 GM in Dextrose 2 GM/50 ML BAG IV ONE
[2022-01-10] MEDS: metroNIDAZOLE IV 500 MG/100ML 500 MG/100 ML BAG IVPB SCH ×3 (00:21→16:05)
[2022-01-10 00:58] LABS: Urine Appearance Cloudy; Urine Bilirubin Negative (Negative); Urine Blood 3+ (Negative); Urine Color Amber; Urine Glucose Negative (Negative); Urine Ketones Negative (Negative); Urine Nitrite Negative (Negative); Urine Protein 1+(30 mg/dL) (Negative); Urine Specific Gravity 1.039 (1.002-1.030); Urine Urobilinogen Positive (Negative)
[2022-01-10 01:18] LABS: Urine Bacteria Absent (Absent); Urine Red Blood Cell 3+(>10/hpf) (Absent); Urine Squamous Epithelial Cell Present (Absent); Urine White Blood Cell 1+(6-10/hpf) (Absent)
[2022-01-10 05:25] LABS: ABS Basophils 0.1 10^3/ul (0-0.2); ABS Eosinophils 0.1 10^3/ul (0-0.6); ABS Lymphocytes 1.2 10^3/ul (1.0-4.8); ABS Neutrophils 11.6 10^3/ul (1.5-7.7); Eosinophil % 0.6 %; Hematocrit 33 % (42-52); Hemoglobin 10.9 g/dL (14.0-18.0); Lymphocyte % 8.6 %; Mean Corpuscular HGB Conc 33 g/dL (31-36); Mean Corpuscular Hemoglobin 32 pg (27-31); Mean Corpuscular Volume 98 fL (80-94); Mean Platelet Volume 8.5 fL (7.4-10.4); Platelet Count 257 10^3/uL (150-450); Red Blood Count 3.38 10^6 /uL (4.18-5.48); Red Cell Distribution Width 15 % (10-15); White Blood Count 13.9 10^3/uL (3.5-10.8)
[2022-01-10 05:54] LABS: Albumin 3.1 g/dL (3.2-5.2); Albumin/Globulin Ratio 1.3 (1-3); Calcium 8.2 mg/dL (8.6-10.3); Globulin 2.3 g/dL (2-4); Magnesium 1.9 mg/dL (1.9-2.7); Potassium 3.9 mmol/L (3.5-5.0); Total Bilirubin 5.6 mg/dL (0.2-1.0); Total Protein 5.4 g/dL (6.4-8.9)
[2022-01-10] MEDS: Mometasone/Formoter 200/5 MDI INH SCH ×2 (08:32→20:34)
[2022-01-10] MEDS: SPIRIVA Respimat (tiotropium) 2.5 mcg/inh Inhaler INH SCH (09:49)
[2022-01-10] MEDS: Cefepime 2 GM in Dextrose 2 GM/50 ML BAG IV SCH (13:44)
[2022-01-10] MEDS: Enoxaparin 40 MG/0.4 ML SYR SUBCUT SCH (21:05)
[2022-01-11] MEDS: metroNIDAZOLE IV 500 MG/100ML 500 MG/100 ML BAG IVPB SCH ×3 (00:15→17:10)
[2022-01-11] MEDS: Cefepime 2 GM in Dextrose 2 GM/50 ML BAG IV SCH (02:46)
[2022-01-11 07:02] LABS: ABS Eosinophils 0.2 10^3/ul (0-0.6); ABS Lymphocytes 0.9 10^3/ul (1.0-4.8); ABS Monocytes 0.5 10^3/ul (0-0.8); ABS Neutrophils 5.7 10^3/ul (1.5-7.7); Eosinophil % 2.9 %; Hematocrit 31 % (42-52); Hemoglobin 10.6 g/dL (14.0-18.0); Mean Corpuscular HGB Conc 34 g/dL (31-36); Mean Corpuscular Hemoglobin 33 pg (27-31); Mean Corpuscular Volume 98 fL (80-94); Mean Platelet Volume 8.4 fL (7.4-10.4); Platelet Count 241 10^3/uL (150-450); Red Blood Count 3.22 10^6 /uL (4.18-5.48); Red Cell Distribution Width 15 % (10-15); White Blood Count 7.4 10^3/uL (3.5-10.8)
[2022-01-11 07:22] LABS: Calcium 7.9 mg/dL (8.6-10.3); Potassium 3.7 mmol/L (3.5-5.0); eGFR CKD-EPI 86.6 (>60)
[2022-01-11] MEDS: SPIRIVA Respimat (tiotropium) 2.5 mcg/inh Inhaler INH SCH (07:35)
[2022-01-11] MEDS: Mometasone/Formoter 200/5 MDI INH SCH ×2 (07:35→19:43)
[2022-01-11] MEDS ORDERED: Potassium Chloride LIQUID 20 MEQ/15 ML LIQUID PO ONE (10:06)
[2022-01-11] MEDS: KCL 10 MEQ/50 ML IVPREMIX 10 MEQ/50 ML BAG IV SCH (11:09)
[2022-01-11 11:40] LABS: Albumin 3.1 g/dL (3.2-5.2); Albumin/Globulin Ratio 1.5 (1-3); Direct Bilirubin 1.3 mg/dL (0.03-0.18); Globulin 2.1 g/dL (2-4); Indirect Bilirubin 1.1 mg/dL (0.3-1.0); Total Bilirubin 2.4 mg/dL (0.2-1.0); Total Protein 5.2 g/dL (6.4-8.9)
[2022-01-11] MEDS: cefTRIAXone 2 gm/50 mL D5W 2 GM/50 ML BAG IV SCH (13:45)
[2022-01-11] MEDS: Enoxaparin 40 MG/0.4 ML SYR SUBCUT SCH (21:21)
[2022-01-12] MEDS ORDERED: Morphine 2 MG/ML SYRINGE IV ONE ×2 (04:26→22:05)
[2022-01-12] MEDS: metroNIDAZOLE IV 500 MG/100ML 500 MG/100 ML BAG IVPB SCH ×3 (05:34→16:54)
[2022-01-12] MEDS ORDERED: HYDROmorphone 0.5 MG/0.5 ML SYRINGE IV ONE (06:02)
[2022-01-12] MEDS ORDERED: Ondansetron 4 mg VIAL 2 MG/ML 2 ml VIAL IV ONE (06:02)
[2022-01-12 06:49] LABS: ABS Basophils 0.1 10^3/ul (0-0.2); ABS Lymphocytes 1.5 10^3/ul (1.0-4.8); ABS Neutrophils 10.8 10^3/ul (1.5-7.7); Eosinophil % 0.2 %; Hematocrit 38 % (42-52); Hemoglobin 12.2 g/dL (14.0-18.0); Mean Corpuscular HGB Conc 33 g/dL (31-36); Mean Corpuscular Hemoglobin 32 pg (27-31); Mean Corpuscular Volume 99 fL (80-94); Mean Platelet Volume 8.8 fL (7.4-10.4); Platelet Count 318 10^3/uL (150-450); Red Blood Count 3.79 10^6 /uL (4.18-5.48); Red Cell Distribution Width 15 % (10-15); White Blood Count 13.3 10^3/uL (3.5-10.8)
[2022-01-12 07:04] LABS: Calcium 9.1 mg/dL (8.6-10.3); Magnesium 2.1 mg/dL (1.9-2.7); Potassium 4.9 mmol/L (3.5-5.0); eGFR CKD-EPI 73.3 (>60)
[2022-01-12 07:16] LABS: PSA Screening Total 6.151 ng/mL (0-4.000)
[2022-01-12] MEDS: Mometasone/Formoter 200/5 MDI INH SCH ×2 (08:43→20:11)
[2022-01-12] MEDS: SPIRIVA Respimat (tiotropium) 2.5 mcg/inh Inhaler INH SCH (08:45)
[2022-01-12 14:04] LABS: Albumin 3.9 g/dL (3.2-5.2); Albumin/Globulin Ratio 1.3 (1-3); Direct Bilirubin 0.7 mg/dL (0.03-0.18); Indirect Bilirubin 1.1 mg/dL (0.3-1.0); Total Bilirubin 1.8 mg/dL (0.2-1.0); Total Protein 6.9 g/dL (6.4-8.9)
[2022-01-12] MEDS: cefTRIAXone 2 gm/50 mL D5W 2 GM/50 ML BAG IV SCH (16:30)
[2022-01-12] MEDS: Enoxaparin 40 MG/0.4 ML SYR SUBCUT SCH (23:34)
[2022-01-13] MEDS: metroNIDAZOLE IV 500 MG/100ML 500 MG/100 ML BAG IVPB SCH ×2 (00:40→08:31)
[2022-01-13 06:02] LABS: Hematocrit 33 % (42-52); Hemoglobin 10.6 g/dL (14.0-18.0); Mean Corpuscular HGB Conc 33 g/dL (31-36); Mean Corpuscular Hemoglobin 32 pg (27-31); Mean Corpuscular Volume 98 fL (80-94); Mean Platelet Volume 8.6 fL (7.4-10.4); Platelet Count 220 10^3/uL (150-450); Red Blood Count 3.31 10^6 /uL (4.18-5.48); Red Cell Distribution Width 15 % (10-15); White Blood Count 6.2 10^3/uL (3.5-10.8)
[2022-01-13 06:26] LABS: Albumin/Globulin Ratio 1.4 (1-3); Calcium 8.1 mg/dL (8.6-10.3); Direct Bilirubin 0.4 mg/dL (0.03-0.18); Globulin 2.1 g/dL (2-4); Indirect Bilirubin 0.5 mg/dL (0.3-1.0); Potassium 4.3 mmol/L (3.5-5.0); Total Bilirubin 0.9 mg/dL (0.2-1.0); Total Protein 5.1 g/dL (6.4-8.9); eGFR CKD-EPI 84.5 (>60)
[2022-01-13] MEDS: SPIRIVA Respimat (tiotropium) 2.5 mcg/inh Inhaler INH SCH (07:42)
[2022-01-13] MEDS: Mometasone/Formoter 200/5 MDI INH SCH ×2 (07:42→19:23)
[2022-01-13] MEDS: Enoxaparin 40 MG/0.4 ML SYR SUBCUT SCH (20:35)
[2022-01-14] MEDS ORDERED: Morphine 2 MG/ML SYRINGE IV ONE (01:43)
[2022-01-14 06:52] LABS: ABS Basophils 0.1 10^3/ul (0-0.2); ABS Eosinophils 0.2 10^3/ul (0-0.6); ABS Lymphocytes 1.5 10^3/ul (1.0-4.8); ABS Monocytes 0.8 10^3/ul (0-0.8); ABS Neutrophils 5.7 10^3/ul (1.5-7.7); Eosinophil % 2.8 %; Hematocrit 31 % (42-52); Hemoglobin 10.2 g/dL (14.0-18.0); Lymphocyte % 17.6 %; Mean Corpuscular HGB Conc 34 g/dL (31-36); Mean Corpuscular Hemoglobin 33 pg (27-31); Mean Corpuscular Volume 98 fL (80-94); Mean Platelet Volume 8.2 fL (7.4-10.4); Platelet Count 282 10^3/uL (150-450); Red Blood Count 3.11 10^6 /uL (4.18-5.48); Red Cell Distribution Width 15 % (10-15); White Blood Count 8.2 10^3/uL (3.5-10.8)
[2022-01-14] MEDS: Mometasone/Formoter 200/5 MDI INH SCH ×2 (07:28→20:38)
[2022-01-14 07:29] LABS: Calcium 8.4 mg/dL (8.6-10.3); Potassium 4.4 mmol/L (3.5-5.0); eGFR CKD-EPI 87.6 (>60)
[2022-01-14] MEDS: SPIRIVA Respimat (tiotropium) 2.5 mcg/inh Inhaler INH SCH (07:30)
[2022-01-14] MEDS ORDERED: Influenza vaccine *QUAD* *2022-23* 0.5 ML SYRINGE IM ONE (09:00)
[2022-01-14] MEDS: Enoxaparin 40 MG/0.4 ML SYR SUBCUT SCH (22:41)
[2022-01-15 05:12] LABS: ABS Basophils 0.1 10^3/ul (0-0.2); ABS Eosinophils 0.3 10^3/ul (0-0.6); ABS Lymphocytes 1.4 10^3/ul (1.0-4.8); ABS Monocytes 0.8 10^3/ul (0-0.8); ABS Neutrophils 5.7 10^3/ul (1.5-7.7); Eosinophil % 3.1 %; Hematocrit 29 % (42-52); Mean Corpuscular HGB Conc 34 g/dL (31-36); Mean Corpuscular Hemoglobin 33 pg (27-31); Mean Corpuscular Volume 98 fL (80-94); Mean Platelet Volume 8.4 fL (7.4-10.4); Nucleated Red Blood Cells % 0.1; Platelet Count 290 10^3/uL (150-450); Red Blood Count 2.99 10^6 /uL (4.18-5.48); Red Cell Distribution Width 15 % (10-15); White Blood Count 8.3 10^3/uL (3.5-10.8)
[2022-01-15 05:35] LABS: Calcium 8.3 mg/dL (8.6-10.3); Potassium 4.2 mmol/L (3.5-5.0); eGFR CKD-EPI 89.7 (>60)
[2022-01-15] MEDS: SPIRIVA Respimat (tiotropium) 2.5 mcg/inh Inhaler INH SCH (08:23)
[2022-01-15] MEDS: Mometasone/Formoter 200/5 MDI INH SCH ×2 (08:23→22:17)
[2022-01-15] MEDS: Enoxaparin 40 MG/0.4 ML SYR SUBCUT SCH (21:36)
[2022-01-16 05:57] LABS: Hematocrit 30 % (42-52); Hemoglobin 10.2 g/dL (14.0-18.0); Mean Corpuscular HGB Conc 34 g/dL (31-36); Mean Corpuscular Hemoglobin 34 pg (27-31); Mean Corpuscular Volume 97 fL (80-94); Mean Platelet Volume 7.7 fL (7.4-10.4); Platelet Count 305 10^3/uL (150-450); Red Blood Count 3.06 10^6 /uL (4.18-5.48); Red Cell Distribution Width 15 % (10-15); White Blood Count 7.6 10^3/uL (3.5-10.8)
[2022-01-16 06:35] LABS: Calcium 8.2 mg/dL (8.6-10.3); Magnesium 2.1 mg/dL (1.9-2.7); Potassium 4.4 mmol/L (3.5-5.0); eGFR CKD-EPI 87.6 (>60)
[2022-01-16 06:56] LABS: ABS Basophils 0.1 10^3/ul (0-0.2); ABS Eosinophils 0.3 10^3/ul (0-0.6); ABS Lymphocytes 1.7 10^3/ul (1.0-4.8); ABS Monocytes 0.8 10^3/ul (0-0.8); ABS Neutrophils 4.7 10^3/ul (1.5-7.7); Eosinophil % 3.8 %; Lymphocyte % 21.8 %; Nucleated Red Blood Cells % 0.1
[2022-01-16] MEDS: SPIRIVA Respimat (tiotropium) 2.5 mcg/inh Inhaler INH SCH (08:26)
[2022-01-16] MEDS: Mometasone/Formoter 200/5 MDI INH SCH (08:28)
[2022-01-16 16:06] VITALS: BP 116/60
== END 2022-01-16 17:15 | disposition home health service (06) | DRG 872 ==
LOC: MERGE 12:03 → ED 12:03 → EDHOLD 12:03 → SUATTDRO 17:51 → EDHOLD 01-10 12:40 → MEDTELE 01-10 12:47 → SUATTDRO 01-11 11:00 → SSU 01-15 22:27
PROVIDERS: ADMIT Hospitalist; ATTEND Hospitalist

== ENCOUNTER 2022-01-27 09:29 | Observation (INO) ==
[2022-01-27 10:26] LABS: Activated Partial Thrombo Time 31.8 seconds (26.0-38.0); INR 1.06 (0.89-1.11)
[2022-01-27 10:28] LABS: ABS Basophils 0.1 10^3/ul (0-0.2); ABS Eosinophils 0.1 10^3/ul (0-0.6); ABS Lymphocytes 1.2 10^3/ul (1.0-4.8); ABS Neutrophils 8.1 10^3/ul (1.5-7.7); Eosinophil % 1.2 %; Hematocrit 33 % (42-52); Hemoglobin 10.9 g/dL (14.0-18.0); Lymphocyte % 11.8 %; Mean Corpuscular HGB Conc 33 g/dL (31-36); Mean Corpuscular Hemoglobin 33 pg (27-31); Mean Corpuscular Volume 99 fL (80-94); Mean Platelet Volume 8.4 fL (7.4-10.4); Nucleated Red Blood Cells % 0.1; Platelet Count 412 10^3/uL (150-450); Red Blood Count 3.36 10^6 /uL (4.18-5.48); Red Cell Distribution Width 16 % (10-15); White Blood Count 10.6 10^3/uL (3.5-10.8)
[2022-01-27 10:57] LABS: Albumin 3.5 g/dL (3.2-5.2); Albumin/Globulin Ratio 1.3 (1-3); C Reactive Protein 138.03 mg/L (<8.01); Calcium 8.7 mg/dL (8.6-10.3); Globulin 2.7 g/dL (2-4); Potassium 4.5 mmol/L (3.5-5.0); Total Bilirubin 0.7 mg/dL (0.2-1.0); Total Protein 6.2 g/dL (6.4-8.9); eGFR CKD-EPI 89.7 (>60)
[2022-01-27 11:31] LABS: High Sensitivity Troponin 1 Hr 83 pg/mL (<20); Urine Appearance Cloudy; Urine Bilirubin Negative (Negative); Urine Blood 3+ (Negative); Urine Color Yellow; Urine Glucose Negative (Negative); Urine Ketones Negative (Negative); Urine Nitrite Negative (Negative); Urine Protein 2+(100 mg/dL) (Negative); Urine Specific Gravity 1.016 (1.002-1.030); Urine Urobilinogen Negative (Negative)
[2022-01-27 11:38] LABS: Urine Bacteria 2+ (Absent); Urine Red Blood Cell 3+(>10/hpf) (Absent); Urine White Blood Cell 3+(>20/hpf) (Absent)
[2022-01-27] MEDS ORDERED: cefTRIAXone 2 gm/50 mL D5W 2 GM/50 ML BAG IV ONE (11:41)
[2022-01-27] MEDS: Miconazole TOPICAL CREAM 2% 30 GM TOPICAL SCH ×2 (16:29→23:14)
[2022-01-27] MEDS: Neomycin/Polym/Bacit TOP OINT 15 GM TOPICAL SCH ×2 (16:29→23:14)
[2022-01-27] MEDS: Enoxaparin 40 MG/0.4 ML SYR SUBCUT SCH (16:32)
[2022-01-27] MEDS ORDERED: Dextrose 50% Syringe 50 ml 25 GM/50 ML SYRINGE IV PUSH PRN (18:14)
[2022-01-27] MEDS ORDERED: Lidocaine 1% VIAL 10 MG/ML VIAL 30 ML INJ ONE (18:37)
[2022-01-27] MEDS ORDERED: Albuterol HFA INHALER 8 gm MDI INH ONE (18:38)
[2022-01-27] MEDS ORDERED: Acetaminophen IV 1 GM/100ML 1,000 MG/100 ML BAG IV PRN (20:52)
[2022-01-27] MEDS ORDERED: HYDROmorphone 1 MG/1 ML SYRINGE IV PRN (20:53)
[2022-01-28 05:57] LABS: ABS Basophils 0.1 10^3/ul (0-0.2); ABS Eosinophils 0.1 10^3/ul (0-0.6); ABS Lymphocytes 1.2 10^3/ul (1.0-4.8); ABS Monocytes 0.9 10^3/ul (0-0.8); ABS Neutrophils 5.6 10^3/ul (1.5-7.7); Eosinophil % 1.8 %; Hematocrit 30 % (42-52); Hemoglobin 10.1 g/dL (14.0-18.0); Lymphocyte % 14.9 %; Mean Corpuscular HGB Conc 33 g/dL (31-36); Mean Corpuscular Hemoglobin 33 pg (27-31); Mean Corpuscular Volume 98 fL (80-94); Mean Platelet Volume 7.6 fL (7.4-10.4); Platelet Count 348 10^3/uL (150-450); Red Blood Count 3.09 10^6 /uL (4.18-5.48); Red Cell Distribution Width 16 % (10-15); White Blood Count 7.9 10^3/uL (3.5-10.8)
[2022-01-28 07:21] LABS: Calcium 8.3 mg/dL (8.6-10.3); Potassium 4.4 mmol/L (3.5-5.0); eGFR CKD-EPI 90.5 (>60)
[2022-01-28] MEDS: Miconazole TOPICAL CREAM 2% 30 GM TOPICAL SCH ×3 (07:44→23:40)
[2022-01-28] MEDS: Neomycin/Polym/Bacit TOP OINT 15 GM TOPICAL SCH ×3 (07:45→23:41)
[2022-01-28] MEDS ORDERED: Albuterol HFA INHALER 8 gm MDI INH PRN (09:57)
[2022-01-28] MEDS ORDERED: NON FORMULARY MED (Tiotropium Bromide [Spiriva With Handihaler] 18 mcg capsule, w/inhalati INH SCH (10:00)
[2022-01-28] MEDS ORDERED: cefTRIAXone 1 gm/50 mL D5W 1 GM/50 ML BAG IV SCH (11:00)
[2022-01-28] MEDS: SPIRIVA Respimat (tiotropium) 2.5 mcg/inh Inhaler INH SCH (11:40)
[2022-01-28] MEDS: Enoxaparin 40 MG/0.4 ML SYR SUBCUT SCH (14:09)
[2022-01-28] MEDS: Mometasone/Formoter 200/5 MDI INH SCH (19:25)
[2022-01-29] MEDS: SPIRIVA Respimat (tiotropium) 2.5 mcg/inh Inhaler INH SCH (07:24)
[2022-01-29] MEDS: Mometasone/Formoter 200/5 MDI INH SCH (07:26)
[2022-01-29] MEDS: Miconazole TOPICAL CREAM 2% 30 GM TOPICAL SCH ×2 (09:39→12:58)
[2022-01-29] MEDS: Neomycin/Polym/Bacit TOP OINT 15 GM TOPICAL SCH ×2 (09:39→12:58)
[2022-01-29] MEDS: Enoxaparin 40 MG/0.4 ML SYR SUBCUT SCH (12:58)
[2022-01-29 15:46] VITALS: BP 149/70
== END 2022-01-29 17:45 | disposition home or self-care (01) ==
LOC: ED 09:29 → EDHOLD 09:29 → MED 20:54
PROVIDERS: ADMIT Internal Medicine; ATTEND Internal Medicine